=== PATIENT | female | born 1990 | race African-American/Black ===

== ENCOUNTER 2020-10-15 17:47 | Emergency (ER) | payer OTHER, SELFPAY ==
[2020-10-15 18:33] VITALS: BP 140/79; PULSE 94; RESP 16; TEMP 36.2; O2SAT 100
[2020-10-15 18:44] VITALS: BP 140/79; PULSE 94; RESP 17; TEMP 36.2; O2SAT 100; BMI 41.3
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
== END 2020-10-15 19:48 | disposition home or self-care (01) ==
PROVIDERS: Emergency Provider Internal Medicine
DX: S39.012A Strain of muscle, fascia and tendon of lower back, initial encounter (principal); M25.551 Pain in right hip; V43.02XA Car driver injured in collision with other type car in nontraffic accident, initial encounter; Y93.9 Activity, unspecified; Y92.410 Unspecified street and highway as the place of occurrence of the external cause; Y99.9 Unspecified external cause status; Z79.899 Other long term (current) drug therapy; Z87.891 Personal history of nicotine dependence
CPT/HCPCS: 99283; 99284

== ENCOUNTER 2021-07-18 20:40 | Emergency (ER) | payer OTHER, SELFPAY ==
--- NOTE | ~2021-07-18 | XR_ITS ---
EXAMINATION: XR HIP, RIGHT CLINICAL INFORMATION: Pain in right hip. COMPARISON: Right hip 01/11/2018. TECHNIQUE: Two views of the right hip. FINDINGS: Stable chronic changes of the right hip. There is a shallow acetabulum with superior subluxation of the femoral head. This suggests chronic hip dysplasia. Similar but not as severe change is evident in the left hip. There is chronic hypertrophic bony change seen at the anterior superior iliac crest extending along the right side of the iliac wing. No acute abnormality. No fracture or bone destruction. Sacroiliac joints and the symphysis pubis are normal. XR/XR hip RT w PEL1V IMPRESSION: Stable chronic changes of the right hip similar to prior exam of 01/11/2018. Shallow acetabulum with superiorly subluxed right femoral head. Probable chronic hip dysplasia. No acute abnormality.
[2021-07-18 20:49] VITALS: BP 145/97; PULSE 98; RESP 18; TEMP 36.7; O2SAT 98; BMI 37.3
--- NOTE | 2021-07-18 22:08 | ED_ITS ---
HPI - General Adult General Chief complaint: General Medical Stated complaint: right hip pain Time Seen by Provider: 07/18/21 21:45 Source: patient Mode of arrival: ambulatory Limitations: no limitations History of Present Illness HPI narrative: 30-year-old female here with complaints of acute on chronic right hip pain for the last 2 weeks. Patient tells me she has a history of hip dysplasia and has seen a specialist in [place] and it was recommended that she have the hip replaced. Patient tells me that this was 3 years ago and at that time she was and so she deferred any surgical intervention. She tells me that she has chronic pain since then but has had increasing pain over the last 2 weeks. No injury or trauma. No numbness, tingling, fevers, chills. patient taking Motrin at home with continued pain. Related Data Previous Rx's Medication Instructions Recorded cyclobenzaprine 10 mg tablet 10 mg PO TID PRN #10 tab 10/15/20 ibuprofen 600 mg tablet 600 mg PO Q8H PRN #20 tab 10/15/20 lidocaine 5 % topical patch 1 patch TOPICAL DAILY #15 ea 10/15/20 (Lidoderm) lidocaine 5 % topical patch 1 patch TOPICAL DAILY #15 ea 07/18/21 (Lidoderm) methocarbamol 750 mg tablet 750 mg PO Q6H PRN #15 tab 07/18/21 naproxen 500 mg tablet 500 mg PO BID PRN #30 tab 07/18/21 Allergies Allergy/AdvReac Type Severity Reaction Status Date / Time topiramate [From TOPAMAX] Allergy Unknown PSYCHOTIC Verified 07/18/21 20:49 BREAK Review of Systems Review of Systems: Yes all other systems are reviewed and are negative Constitutional: Constitutional: Reports no additional constitutional complaints, Denies body ache(s), Denies chills, Denies fever(s), Denies headache(s) and Denies weakness Eyes: Eyes: Reports no additional eye complaints and Denies change in vision ENT: Reports system reviewed and no additional complaints, except as documented, Denies dizziness, Denies headache(s), Denies nasal congestion, Denies nasal discharge and Denies neck pain Cardiovascular: Cardiovascular: Reports no additional cardiovascular complaints, Denies chest pain, Denies leg edema and Denies dyspnea Respiratory: Respiratory: Reports no additional respiratory complaints, Denies cough and Denies dyspnea Gastrointestinal: Gastrointestinal: Reports no additional gastrointestinal complaints, Denies abdominal pain, Denies diarrhea, Denies nausea and Denies vomiting Genitourinary: Genitourinary: Reports no additional female genitourinary complaints and Denies urinary incontinence Musculoskeletal: Musculoskeletal: Reports no additional musculoskeletal complaints, Denies back pain, Reports arthralgias, Denies joint swelling, Denies neck pain, Denies numbness and Denies tingling Integumentary/Breasts: Skin/Breast: Reports system reviewed and no additional complaints, except as docu and Denies rash Neurologic: Reports system reviewed and no additional complaints, except as documented, Denies Abnormal speech present, Denies dizziness, Denies headache(s), Denies numbness, Denies tingling and Denies weakness PMFSH Past Medical History Attestation statement: The following information was validated with the patient. Source: old records reviewed and nursing notes reviewed Medical History Anxiety Depression Hip dysplasia PTSD (post-traumatic stress disorder) Social History Social History Advance Directives: No Advance Directives Information Provided: Yes Physical Exam Vital Signs: Vital Signs: Last Vital Signs Temp 98.1 F 07/18/21 20:49 Pulse 98 07/18/21 20:49 Resp 18 07/18/21 20:49 BP 145/97 H 07/18/21 20:49 Pulse Ox 98 07/18/21 20:49 BMI result Body Mass Index 37.3 Const: General: cooperative, healthy appearing, comfortable and no acute distress Orientation/consciousness: patient oriented x3 Limitations: no limitations HENMT: Head: Yes normal to inspection Ears: hearing grossly normal bilaterally General nose exam: Normal external nose present Face and sinus: Yes normal facial exam Mouth: Normal oral and palatal mucosa present Throat: Yes posterior oropharynx normal Eyes: General: appearance normal, both eyes and all related structures Pupils: Equal, round and reactive pupils present Neck: Neck: Yes normal visual inspection Chest: Chest palpation & inspection: normal inspection of the chest Resp: Effort & Inspection: normal respiratory effort Auscultation: clear to auscultation bilaterally Cardio: Rate: regular rate Rhythm: regular rhythm Peripheral pulses: Peripheral pulses 2+ throughout GI: Inspection: Yes normal to inspection Palpation (GI): Soft to palpation and nontender Auscultation: normal bowel sounds Back/Spine/Pelvis: Thoracic/Lumbar Spine: thoracic and lumbar spine normal to inspection Skin: General skin exam: no rashes or lesions noted Neuro: General: patient oriented x3, no focal motor deficits and normal sensation to monofilament Cranial nerves: Yes Equal, round and reactive pupils present Cognition (Neuro): normal cognition Speech: No Abnormal speech present Gait exam (Neuro): Normal gait present Motor exam (neuro): 5/5 motor strength present throughout Extrem: Other: Tenderness over the right lateral hip with no deformity, shortening or rotation. Pain is worsened with abduction adduction of the right hip. General: Yes normal to inspection Course Course Course Narrative: Acute on chronic right hip pain will check x-rays. 2230- Stable chronic changes of the right hip similar to prior exam of 01/11/2018. Shallow acetabulum with superiorly subluxed right femoral head. Probable chronic hip dysplasia. No acute abnormality.' reviewed findings with patient. Recommend she follow up outpatient with Orthopedics. Will send her home with medications to help with pain in the meantime. Reviewed worrisome signs and symptoms of when to return to the emergency department. Comfortable discharge home. Medical Decision Making Medical Records Medical records reviewed: Yes I reviewed the patient's medical records. Lab Data Lab results reviewed: Yes I reviewed the patient's lab results. Imaging Data right hip x-ray: Attestation: I personally reviewed and interpreted this imaging study as follows: Radiologist's impression: FINDINGS: Stable chronic changes of the right hip. There is a shallow acetabulum with superior subluxation of the femoral head. This suggests chronic hip dysplasia. Similar but not as severe change is evident in the left hip. There is chronic hypertrophic bony change seen at the anterior superior iliac crest extending along the right side of the iliac wing. No acute abnormality. No fracture or bone destruction. Sacroiliac joints and the symphysis pubis are normal. XR/XR hip RT w PEL1V IMPRESSION: Stable chronic changes of the right hip similar to prior exam of 01/11/2018. Shallow acetabulum with superiorly subluxed right femoral head. Probable chronic hip dysplasia. No acute abnormality. ? Discharge Plan Discharge Clinical Impression: Dysplasia of hip Patient Disposition: Home, Self-Care Instructions: Developmental Dysplasia of the Hip in Children (ED), Hip Pain (ED) Additional Instructions: x-ray shows no fracture heat or ice to the area follow-up with orthopedics as discussed Prescriptions: New naproxen 500 mg tablet 500 mg PO BID PRN (Reason: pain) Qty: 30 RF: 0 methocarbamol 750 mg tablet 750 mg PO Q6H PRN (Reason: pain) Qty: 15 RF: 0 lidocaine [Lidoderm] 5 % adhesive patch,medicated 1 patch topical DAILY Qty: 15 RF: 0 No Action cyclobenzaprine 10 mg tablet 10 mg PO TID PRN (Reason: muscle spasm) Qty: 10 RF: 0 lidocaine [Lidoderm] 5 % adhesive patch,medicated 1 patch topical DAILY Qty: 15 RF: 0 ibuprofen 600 mg tablet 600 mg PO Q8H PRN (Reason: pain) Qty: 20 RF: 0 Referrals: Fernando Hearn MD [Physician] - 2 days Interventions: ED Discharge Assessment Last Done: 07/18/21 22:24 Discharge Date/Time: 07/18/21 22:28
== END 2021-07-18 22:28 | disposition home or self-care (01) ==
PROVIDERS: Emergency Provider Internal Medicine
DX: M25.551 Pain in right hip (principal); Q74.2 Other congenital malformations of lower limb(s), including pelvic girdle
CPT/HCPCS: 73502; 99283

== ENCOUNTER 2022-05-25 15:26 | Emergency (ER) | payer OTHER, SELFPAY ==
--- NOTE | ~2022-05-25 | XR_ITS ---
EXAMINATION: XR LEFT HAND AND WRIST CLINICAL INFORMATION: Pain and limited range of motion. COMPARISON: None. TECHNIQUE: Left hand/wrist 4 views. FINDINGS: There is no visible acute fracture, dislocation or subluxation. No bony erosive changes or loose bodies. The soft tissues are normal. There is a tiny fragment adjacent to ulnar styloid process likely old injury or fat necrosis. There is no scaphoid fracture. XR/XR hand wrist LT IMPRESSION: unremarkable left hand/wrist exam.
[2022-05-25 15:33] VITALS: BP 154/83; PULSE 94; RESP 18; TEMP 36.6; O2SAT 99; BMI 37.3
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
[2022-05-25] MEDS: Ketorolac Tromethamine 15 MG/ML VIAL 30 MG IM (17:38)
== END 2022-05-25 17:42 | disposition home or self-care (01) ==
PROVIDERS: Emergency Provider Emergency Medicine; PCP Internal Medicine
DX: S63.502A Unspecified sprain of left wrist, initial encounter (principal); S66.912A Strain of unspecified muscle, fascia and tendon at wrist and hand level, left hand, initial encounter; X50.1XXA Overexertion from prolonged static or awkward postures, initial encounter; Y93.89 Activity, other specified; Y92.810 Car as the place of occurrence of the external cause; Y99.8 Other external cause status
CPT/HCPCS: 73110; 73130; 96372; 99283; 99284; J1885

== ENCOUNTER 2023-03-03 20:02 | Emergency (ER) | payer OTHER, SELFPAY ==
--- NOTE | ~2023-03-03 | US_ITS ---
EXAMINATION: US PELVIS CLINICAL INFORMATION: Pain COMPARISON: None available. TECHNIQUE: Ultrasound of the pelvis is performed using both transabdominal and transvaginal transducers along with Doppler. Transvaginal imaging is performed due to inadequate visualization transabdominally. FINDINGS: Uterus: The uterus is anteverted and measures 9.1 x 4.0 x 4.2 cm. The double wall endometrial thickness is 0.3 mm. The uterus is smooth in contour and has normal myometrial echogenicity. No visible fibroid. Adnexa: Both ovaries are visualized. There is normal color flow to the adnexa. There is no ovarian torsion. There is no pelvic ascites or fluid collection. Right ovary measures 3.1 x 3.2 x 2.4 cm. 12 mL Left ovary measures 2.9 x 1.9 x 1.4 cm. 4 mL US/US pelvic and transvaginal IMPRESSION: Normal pelvic ultrasound.
[2023-03-03 20:50] VITALS: BP 149/95; PULSE 86; RESP 18; TEMP 36.5; O2SAT 97; BMI 36.7
--- NOTE | 2023-03-03 20:52 | ED_ITS ---
HPI - General Adult General Chief complaint: Vaginal Bleeding Stated complaint: vag bleeding 4 wks/ kidney area pain Time Seen by Provider: 03/04/23 03:21 Related Data Previous Rx's Medication Instructions Recorded cyclobenzaprine 10 mg tablet 10 mg PO TID PRN muscle spasm #10 10/15/20 tabs ibuprofen 600 mg tablet 600 mg PO Q8H PRN pain #20 tabs 10/15/20 lidocaine 5 % topical patch 1 patch topical DAILY #15 ea 10/15/20 (Lidoderm) lidocaine 5 % topical patch 1 patch topical DAILY #15 ea 07/18/21 (Lidoderm) methocarbamol 750 mg tablet 750 mg PO Q6H PRN pain #15 tabs 07/18/21 naproxen 500 mg tablet 500 mg PO BID PRN pain #30 tabs 07/18/21 acetaminophen 650 mg 650 mg PO Q8H PRN pain #30 tabs 03/04/23 tablet,extended release (Tylenol Arthritis Pain) cyclobenzaprine 10 mg tablet 10 mg PO Q8H #20 tabs 03/04/23 medroxyprogesterone 10 mg tablet 10 mg PO DAILY #7 tabs 03/04/23 (Provera) tramadol 50 mg tablet 50 mg PO Q6H PRN pain #20 tabs 03/04/23 Allergies Allergy/AdvReac Type Severity Reaction Status Date / Time topiramate [From TOPAMAX] Allergy Unknown PSYCHOTIC Verified 03/03/23 20:50 BREAK PMFSH Past Medical History Medical History Anxiety Depression Hip dysplasia PTSD (post-traumatic stress disorder) Social History Social History Alcohol intake: current Alcohol intake frequency: 0-2 drinks per day Alcohol type: wine Smoked in Last 30 Days: Yes Use of substances other than those prescribed or required for medical reasons: No Advance Directives: No Advance Directives Information Provided: Yes Physical Exam ED Vital Signs: BMI result Body Mass Index 36.7 Course Course Course Narrative: RME- 32 year old female presents for evaluation of lower abdominal pain radiating to her back. She reports that she has had vaginal bleeding for the last month which is unusual for her. Plan for labs, type and screen, UA, pelvic ultrasound. Medications Administered Discontinued Medications Generic Name Dose Route Start Last Admin Trade Name Brigid PRN Reason Stop Dose Admin Acetaminophen 650 mg 03/04/23 03:32 03/04/23 04:05 Acetaminophen 325 Mg Tablet PO 03/04/23 03:33 650 mg ONCE ONE Administration Medroxyprogesterone Acetate 10 mg 03/04/23 03:32 03/04/23 04:06 Medroxyprogesterone Acetate 5 Mg Tablet PO 03/04/23 03:33 Not Given ONCE ONE Medical Decision Making Lab Data 03/03/23 22:55 03/03/23 22:55 Labs: Lab Results 03/03/23 03/04/23 Range/Units 22:55 03:21 WBC 7.5 (4.8-10.8) X10*3/uL RBC 4.34 (4.20-5.50) X10*6/uL Hgb 12.3 (12.0-16.0) g/dl Hct 38.4 (37.0-47.0) % MCV 88.5 (80.0-98.0) fL MCH 28.3 (27.0-33.0) pg MCHC 32.0 (31.0-35.0) g/dl RDW 15.8 (11.0-16.0) % Plt Count 264 (160-400) X10*3/uL MPV 10.6 (9.4-12.3) fL Immature Gran % (Auto) 0.1 (0.0-0.4) % Neut % (Auto) 57.9 (45-73) % Lymph % (Auto) 31.5 (20-40) % Montague % (Auto) 9.4 (2-11) % Eos % (Auto) 0.8 (0-4) % Baso % (Auto) 0.3 (0-2) % Lymph # (Auto) 2.4 (1.2-4.9) X10*3/uL [place] # (Auto) 0.7 (0.1-1.2) X10*3/uL Eos # (Auto) 0.1 (0.0-0.4) X10*3/uL Baso # (Auto) 0.0 (0.0-0.2) X10*3/uL Abs Immat Gran (auto) 0.01 (0.00-0.03) X10*3/uL Absolute Neuts (auto) 4.3 (2.0-8.3) x10*3/uL Absolute Nucleated RBC 0.000 (0.0-0.012) X10*3/uL Nucleated RBC % (auto) 0.0 (0.0-0.2) /100WBC PT 13.1 (10.0-13.1) SEC INR 1.1 (0.9-1.1) APTT 32.2 (26.0-36.4) SEC Sodium 142 (135-145) mmol/L Potassium 3.1 L (3.3-5.1) mmol/L Chloride 109 H (96-108) mmol/L Carbon Dioxide 25 (22-29) mmol/L Anion Gap 11 L (12-20) BUN 8 L (9-16) mg/dL Creatinine 0.83 (0.5-1.4) mg/dL Estim Creat Clear Calc 134.4 Estimated GFR > 60 Random Glucose 129 H (60-115) mg/dL Calcium 9.4 (8.4-10.2) mg/dL Total Bilirubin 0.4 (0.0-1.0) mg/dL AST 15 (5-31) U/L ALT 18 (0-31) U/L Alkaline Phosphatase 76 (39-117) U/L Total Protein 7.2 (6.5-8.0) g/dL Albumin 4.2 (3.5-5.0) g/dL Lipase 15 (8-78) U/L Urine Color Dark Yellow Urine Appearance Clear Urine pH 6.0 (5.0-9.0) Ur Specific Eighty Eight >= 1.030 H (1.005-1.025) Urine Protein Trace (Neg-Trace) mg/dL Urine Glucose (UA) Negative (Negative) mg/dL Urine Ketones Trace (Negative) mg/dL Urine Blood Large (3+) H (Negative) Urine Nitrite Negative (Negative) Ur Leukocyte Esterase Negative (Negative) Urine RBC 3-5 H (0-2) /HPF Urine WBC 0-5 (0-5) /HPF Ur Squamous Epith Cells 0-2 (0-2) /HPF Urine Bacteria None Seen (None Seen) Hyaline Casts 0-2 (0-2) /LPF Urine Test NEGATIVE (NEGATIVE) Discharge Plan Discharge Clinical Impression: Dysfunctional uterine bleeding Patient Disposition: Home, Self-Care Instructions: Dysfunctional Uterine Bleeding (ED) Additional Instructions: Take medication as prescribed and 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 Prescriptions: New medroxyprogesterone [Provera] 10 mg tablet 10 mg PO DAILY Qty: 7 0RF acetaminophen [Tylenol Arthritis Pain] 650 mg tablet extended release 650 mg PO Q8H PRN (Reason: pain) Qty: 30 0RF cyclobenzaprine 10 mg tablet 10 mg PO Q8H Qty: 20 0RF tramadol 50 mg tablet 50 mg PO Q6H PRN (Reason: pain) Qty: 20 0RF No Action cyclobenzaprine 10 mg tablet 10 mg PO TID PRN (Reason: muscle spasm) Qty: 10 0RF lidocaine [Lidoderm] 5 % adhesive patch,medicated 1 patch topical DAILY Qty: 15 0RF Rx Instructions: leave on most painful area for up to 12 hrs ibuprofen 600 mg tablet 600 mg PO Q8H PRN (Reason: pain) Qty: 20 0RF naproxen 500 mg tablet 500 mg PO BID PRN (Reason: pain) Qty: 30 0RF methocarbamol 750 mg tablet 750 mg PO Q6H PRN (Reason: pain) Qty: 15 0RF lidocaine [Lidoderm] 5 % adhesive patch,medicated 1 patch topical DAILY Qty: 15 0RF Rx Instructions: leave on most painful area for up to 12 hrs Referrals: Sergio Bennett MD [Physician] - 5 days Stand Alone Forms: Work/School Release Interventions: ED Discharge Assessment Last Done: 03/04/23 04:09 Discharge Date/Time: 03/04/23 04:10
[2023-03-03 23:05] LABS: MANUAL DIFF FLAG NO
[2023-03-03 23:07] LABS: Basophils Percent Auto 0.3 % (0-2); Eosinophils Absolute Auto 0.1 X10*3/uL (0.0-0.4); Eosinophils Percent Auto 0.8 % (0-4); Hematocrit 38.4 % (37.0-47.0); Hemoglobin 12.3 g/dl (12.0-16.0); Imm Gran Abs Auto 0.01 X10*3/uL (0.00-0.03); Imm Gran Pct Auto 0.1 % (0.0-0.4); Lymphocytes Absolute Auto 2.4 X10*3/uL (1.2-4.9); Lymphocytes Percent Auto 31.5 % (20-40); Mean Corpuscular Hemoglobin 28.3 pg (27.0-33.0); Mean Corpuscular Volume 88.5 fL (80.0-98.0); Mean Platelet Volume 10.6 fL (9.4-12.3); Monocytes Absolute Auto 0.7 X10*3/uL (0.1-1.2); Monocytes Percent Auto 9.4 % (2-11); Neutrophils Absolute Auto 4.3 x10*3/uL (2.0-8.3); Neutrophils Percent Auto 57.9 % (45-73); Platelet Count 264 X10*3/uL (160-400); Red Blood Count 4.34 X10*6/uL (4.20-5.50); Red Cell Distribution Width 15.8 % (11.0-16.0); White Blood Count 7.5 X10*3/uL (4.8-10.8)
[2023-03-03 23:17] LABS: INTERNATIONAL NORM RATIO 1.1 (0.9-1.1); Prothrombin Time 13.1 SEC (10.0-13.1)
[2023-03-03 23:20] LABS: Partial Thromboplastin Time 32.2 SEC (26.0-36.4)
[2023-03-03 23:25] LABS: Alanine Aminotransferase 18 U/L (0-31); Albumin Level 4.2 g/dL (3.5-5.0); Alkaline Phosphatase 76 U/L (39-117); Anion Gap 11 (12-20); Aspartate Amino Transferase 15 U/L (5-31); Bilirubin Total 0.4 mg/dL (0.0-1.0); Blood Urea Nitrogen 8 mg/dL (9-16); Calcium 9.4 mg/dL (8.4-10.2); Carbon Dioxide 25 mmol/L (22-29); Chloride 109 mmol/L (96-108); Creatinine Clr Calc Pharmacy 134.4; Estimated Glomerular Filt Rate > 60; Glucose Random 129 mg/dL (60-115); Lipase 15 U/L (8-78); Potassium 3.1 mmol/L (3.3-5.1); Sodium 142 mmol/L (135-145); Total Protein 7.2 g/dL (6.5-8.0)
--- OUTSIDE RECORDS SUMMARY | 2023-03-04 01:06 | XMS_ITS | Summary of Care ---
Author Name Unknown Organization [facility] Address [address] [place], [place] [id number]- Care Team Providers Care Dispatcher Service Chief Name Role Phone KYLEIGH TREVINO, ANJUM Lara Primary Care Physi beth Encounter [facility] [id number] Date(s): 01/04/22 - 01/04/[address] [address]- Encounter Diagnosis Other specified congenital deformities of hip(Final) - Discharge Disposition: Discharge Attending Physician: SRI SPICER MD Referring Physician: [facility] Allergies, Adverse Reactions, Alerts Substance Reaction Severity Status Topamax Psychiatric sign Active
--- OUTSIDE RECORDS SUMMARY | 2023-03-04 01:06 | XMS_ITS | Summary of Care ---
Author Name Unknown Organization [facility] Address [address] [place], [place] [id number]- Care Team Providers Care Sticker Operator Name Role Phone KYLEIGH TREVINO, ANJUM Lara Primary Care Physi beth Encounter [facility] [id number] Date(s): 01/08/22 - 01/08/[address] [address]- Attending Physician: SRI SPICER MD Admitting Physician: SRI SPICER MD Referring Physician: [facility] Allergies, Adverse Reactions, Alerts Substance Reaction Severity Status Topamax Psychiatric sign Active Medications No Known Medications
--- OUTSIDE RECORDS SUMMARY | 2023-03-04 01:06 | XMS_ITS | Summary of Care ---
Author Name Unknown Organization [facility] Address [address] [place] [address]- Care Team Providers Care Director Of Analytical Development Name Role Phone KYLEIGH TREVINO, ANJUM Lara Primary Care Physi beth Encounter [facility] [id number] Date(s): 10/19/21 - 10/19/[address] [address]- Discharge Disposition: Discharge Attending Physician: TUCKER MCNAIR MD Referring Physician: ELADIA PEPPER, SHARON Kim Allergies, Adverse Reactions, Alerts Substance Reaction Severity Status Topamax Psychiatric sign Active
--- OUTSIDE RECORDS SUMMARY | 2023-03-04 01:06 | XMS_ITS | Summary of Care ---
Author Name Unknown Organization [facility] Address [address] [place], [place] [address]- Care Team Providers Care Sustain Engineer Name Role Phone KYLEIGH TREVINO, ANJUM Lara Primary Care Physi beth Encounter [facility] [id number] Date(s): 01/07/22 - 01/07/[address] [address]- Discharge Disposition: Discharge Attending Physician: SRI SPICER MD Referring Physician: SRI SPICER MD Allergies, Adverse Reactions, Alerts Substance Reaction Severity Status Topamax Psychiatric sign Active
--- OUTSIDE RECORDS SUMMARY | 2023-03-04 01:06 | XMS_ITS | Summary of Care ---
Author Name Unknown Organization [facility] Address [address] [place] [address]. [place] [address]- Care Team Providers Care Phlebotomy Services Representative Name Role Phone KYLEIGH TREVINO, ANJUM Lara Primary Care Physi beth Encounter [facility] [id number] Date(s): 12/13/21 - 12/13/21 [facility] [address] [place] [id number]- Discharge Disposition: Discharge Attending Physician: TUCKER MCNAIR MD Referring Physician: [facility] Allergies, Adverse Reactions, Alerts Substance Reaction Severity Status Topamax Psychiatric sign Active
--- OUTSIDE RECORDS SUMMARY | 2023-03-04 01:06 | XMS_ITS | Summary of Care ---
Author Name Unknown Organization [facility] Address [address] [place] [address]- Care Team Providers Care Outreach Analyst Name Role Phone KYLEIGH TREVINO, ANJUM Lara Primary Care Physi beth Encounter [facility] [id number] Date(s): 10/19/21 - 10/19/[address] [address]- Discharge Disposition: Discharge Attending Physician: TUCKER MCNAIR MD Referring Physician: TUCKER MCNAIR MD Allergies, Adverse Reactions, Alerts Substance Reaction Severity Status Topamax Psychiatric sign Active
--- OUTSIDE RECORDS SUMMARY | 2023-03-04 01:06 | XMS_ITS | Summary of Care ---
Author Name Unknown Organization [facility] Address [address] [place], [place] [address]- Care Team Providers Care Thread Machine Operator Name Role Phone KYLEIGH TREVINO, ANJUM Lara Primary Care Physi beth Encounter [facility] [id number] Date(s): 01/04/22 - 01/04/[address] [address]- Encounter Diagnosis Other specified congenital deformities of hip(Final) - Discharge Disposition: Discharge Attending Physician: SRI SPICER MD Referring Physician: [facility] Allergies, Adverse Reactions, Alerts Substance Reaction Severity Status Topamax Psychiatric sign Active
--- OUTSIDE RECORDS SUMMARY | 2023-03-04 01:06 | XMS_ITS | Summary of Care ---
Author Name Unknown Organization [facility] Address [address] [place] [address]. [place] [id number]- Care Team Providers Care Staff Rn Name Role Phone KYLEIGH TREVINO, ANJUM Lara Primary Care Physi beth Encounter [facility] [id number] Date(s): 08/30/21 - 08/30/21 [facility] [address] [place] [address]- Attending Physician: TUCKER MCNAIR MD Referring Physician: [facility] Allergies, Adverse Reactions, Alerts Substance Reaction Severity Status Topamax Psychiatric sign Active
--- OUTSIDE RECORDS SUMMARY | 2023-03-04 01:07 | XMS_ITS | Continuity of Care Document ---
Author Name Unknown Organization [facility] Address [address] [place] [address]- Care Team Providers Care Devulcanizer Tender Name Role Phone Don Samson MD Primary Care Physician Encounter [facility] Date(s): 11/12/19 - 01/09/[address] [address]- [facility] Attending Physician: Not on Staff, Attending MD Referring Physician: Don Samson MD Allergies, Adverse Reactions, Alerts Substance Reaction Severity Status Topamax Active Immunizations Given and Recorded Vaccine Date Status Refusal Reason pneumococcal 23-valent vaccine 01/01/20 Given Influenza Virus Vaccine (oldterm) 08/11/18 Recorde d Boostrix (Tdap) (oldterm) 01/01/11 Given influenza virus vaccine, inactivated 1 07/25/10 Gi humberto 1Admin Note: VIS given Medications Keflex monohydrate 500 mg oral capsule 1 capsule = 500 mg, By Mouth, Every 8 hours, for 11 days, # 33 capsule, 0 Refills, Acute 01/14/20 15:08:00 EDT, 01/03/20 15:08:00 EDT, Capsule, [facility], 155.4, cm, 01/03/20 7:57:00 EDT, Height, 75.4, kg, 12/31/19 10:01:00 EDT, Dry Weight Start Date: 01/03/20 Stop Date: 01/14/20 Status: Ordered Multivitamins with Folic Acid 1 mg oral tablet 1 tablet, By Mouth, Daily, # 90 tablet, 3 Refills, Maintenance, 09/27/19 10:06:00 EST, Tablet, [facility], 1 tablet By Mouth Daily, 179, cm, 09/27/19 9:37:00 EST, Height, 122.9, kg, 09/18/19 22:24:00 EST, Dry Weight Start Date: 09/27/19 Status: Ordered Tylenol 325 mg oral capsule 2 capsule = 650 mg, By Mouth, Every 4 hours, PRN as needed for pain, not to exceed 4000 mg/day, # 90 capsule, 0 Refills, Maintenance, 10/17/19 21:15:00 EDT, Capsule, [facility], 179, cm, 09/18/19 22:25:00 EST, Height, 122.9, kg, 09/18/19... Start Date: 10/17/19 Status: Ordered Problem List Condition Effective Dates Status Health Status Inform ant Anxiety(Confirmed) 1 Active Constipation(Confirmed) Active Depression(Confirmed) 2 Active Hip dysplasia(Confirmed) 3 Active (Confirmed) Active 1Sees therapist at [facility], not currently on medications 2Sees therapist at [facility], not currently on medications 3bilateral hip dysplasia, surgery deferred due to . Followed initially by BRIANA then referred to [place] Social History Social History Type Response Smoking Status Never (less than 100 in lifetime) entered on: 09/27/19 Sex
--- OUTSIDE RECORDS SUMMARY | 2023-03-04 01:07 | XMS_ITS | Continuity of Care Document ---
Author Name Unknown Organization [facility] Address [address] [place] [address] Care Team Providers Care Pocket And Pulley Machine Operator Name Role Phone Don Samson MD Primary Care Physician Encounter [facility] Date(s): 11/12/19 - 11/19/[address] [address]- [facility] Attending Physician: Tata Aguirre DO Allergies, Adverse Reactions, Alerts Substance Reaction Severity Status Topamax Active Immunizations Given and Recorded Vaccine Date Status Refusal Reason Influenza Virus Vaccine (oldterm) 08/11/18 Recorde d Boostrix (Tdap) (oldterm) 01/01/11 Given influenza virus vaccine, inactivated 1 07/25/10 Gi humberto 1Admin Note: VIS given Medications Multivitamins with Folic Acid 1 mg oral tablet 1 tablet, By Mouth, Daily, # 90 tablet, 3 Refills, Maintenance, 09/27/19 10:06:00 EST, Tablet, [facility], 1 tablet By Mouth Daily, 179, cm, 09/27/19 9:37:00 EST, Height, 122.9, kg, 09/18/19 22:24:00 EST, Dry Weight Start Date: 09/27/19 Status: Ordered Tylenol 325 mg oral capsule 2 capsule = 650 mg, By Mouth, Every 4 hours, PRN as needed for pain, not to exceed 4000 mg/day, # 90 capsule, 0 Refills, Maintenance, 10/17/19 21:15:00 EDT, Capsule, [facility], 179, cm, 09/18/19 22:25:00 EST, Height, 122.9, kg, 09/18/19... Start Date: 10/17/19 Status: Ordered Problem List Condition Effective Dates Status Health Status Inform ant Anxiety(Confirmed) 1 Active Constipation(Confirmed) Active Depression(Confirmed) 2 Active Hip dysplasia(Confirmed) 3 Active (Confirmed) Active 1Sees therapist at [facility], not currently on medications 2Sees therapist at [facility], not currently on medications 3bilateral hip dysplasia, surgery deferred due to . Followed initially by BRIANA then referred to [place] Social History Social History Type Response Smoking Status Never (less than 100 in lifetime) entered on: 09/27/19 Sex
--- OUTSIDE RECORDS SUMMARY | 2023-03-04 01:07 | XMS_ITS | Continuity of Care Document ---
Author Name Unknown Organization [facility] Address [address] [place] [address] Care Team Providers Care Club Concierge Name Role Phone Don Samson MD Primary Care Physician Encounter [facility] Date(s): 01/05/20 - 02/10/20 [facility] [address] [address]- [facility] Attending Physician: Tata Aguirre DO Admitting Physician: Tata Aguirre DO Referring Physician: Lulu Nieves DO Allergies, Adverse Reactions, Alerts Substance Reaction Severity Status Topamax Active Immunizations Given and Recorded Vaccine Date Status Refusal Reason pneumococcal 23-valent vaccine 01/01/20 Given Influenza Virus Vaccine (oldterm) 08/11/18 Recorde d Boostrix (Tdap) (oldterm) 01/01/11 Given influenza virus vaccine, inactivated 1 07/25/10 Gi humberto 1Admin Note: VIS given Medications Macrobid macrocrystals-monohydrate 100 mg oral capsule 1 capsule = 100 mg, By Mouth, Daily, for 30 days, # 30 capsule, 7 Refills, Acute 09/13/20 10:25:00 EST, 01/17/20 10:25:00 EDT, [id number], suppression daily for hx pyelo in , 155.4, cm, 01/17/20 10:06:00 EDT, Height, 75.4, kg, ... Start Date: 01/17/20 Stop Date: 09/13/20 Status: Ordered Multivitamins with Folic Acid 1 mg oral tablet 1 tablet, By Mouth, Daily, # 90 tablet, 3 Refills, Maintenance, 09/27/19 10:06:00 EST, Tablet, [facility], 1 tablet By Mouth Daily, 179, cm, 09/27/19 9:37:00 EST, Height, 122.9, kg, 09/18/19 22:24:00 EST, Dry Weight Start Date: 09/27/19 Status: Ordered Tylenol 325 mg oral capsule 2 capsule = 650 mg, By Mouth, Every 4 hours, PRN as needed for pain, not to exceed 4000 mg/day, # 90 capsule, 0 Refills, Maintenance, 10/17/19 21:15:00 EDT, Capsule, [facility], 179, cm, 09/18/19 22:25:00 EST, Height, 122.9, kg, 09/18/19... 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 Followed initially by BRIANA then referred to [place] Social History Social History Type Response Smoking Status Never (less than 100 in lifetime) entered on: 09/27/19 Sex
--- OUTSIDE RECORDS SUMMARY | 2023-03-04 01:07 | XMS_ITS | Continuity of Care Document ---
Author Name Unknown Organization [facility] Address [address] [place] [address] Care Team Providers Care Vp Sales Name Role Phone Don Samson MD Primary Care Physician ( [phone] Encounter [facility] Date(s): 04/13/20 - 05/19/[address] [address]- [facility] Attending Physician: Courtney Hyatt MD Admitting Physician: Courtney Hyatt MD Referring Physician: Talisha Steward NP Allergies, Adverse Reactions, Alerts Substance Reaction Severity Status Topamax Active Immunizations Given and Recorded Vaccine Date Status Refusal Reason influenza virus vaccine, inactivated 05/09/20 Give n influenza virus vaccine, inactivated 1 07/25/10 Gi humberto tetanus/diphtheria/pertussis, acel(Tdap) 02/14/20 Given pneumococcal 23-valent vaccine 01/01/20 Given Influenza Virus Vaccine (oldterm) 08/11/18 Recorde d Boostrix (Tdap) (oldterm) 01/01/11 Given 1Admin Note: VIS given Medications Colace sodium 100 mg oral capsule See Instructions, 1 capsule By Mouth 1 to 2 times a day as needed for constipation, # 60 capsule, Refills 1, Tot. Refills 1, Maintenance, 05/11/20 6:54:00 EDT, Instructions Replace Required Details, Route to Pharmacy Electronically, [facility]/pharmacy #[id number]... Start Date: 05/11/20 Status: Ordered ibuprofen 800 mg oral tablet 800 mg, 1, tablet, By Mouth, Every 8 hours, PRN, (4-6), may give 400mg per patient preference and re-dose with 400mg within 8 hours if needed. Patient should only receive a total of 800mg of Ibuprofen every 8 hours., # 60 tablet, Refills 0, Tot. Ref... Start Date: 05/11/20 Status: Ordered Macrobid macrocrystals-monohydrate 100 mg oral capsule 1 capsule = 100 mg, By Mouth, Daily, for 30 days, # 30 capsule, 7 Refills, Acute 09/13/20 10:25:00 EST, 01/17/20 10:25:00 EDT, [facility]/pharmacy #[id number], suppression daily for hx pyelo in , 155.4, cm, 01/17/20 10:06:00 EDT, Height, 75.4, kg, ... Start Date: 01/17/20 Stop Date: 09/13/20 Status: Ordered Multivitamins with Folic Acid 1 mg oral tablet 1 tablet, By Mouth, Daily, # 90 tablet, 3 Refills, Maintenance, 09/27/19 10:06:00 EST, Tablet, [facility], 1 tablet By Mouth Daily, 179, cm, 09/27/19 9:37:00 EST, Height, 122.9, kg, 09/18/19 22:24:00 EST, Dry Weight Start Date: 09/27/19 Status: Ordered Tylenol 325 mg oral capsule 2 capsule = 650 mg, By Mouth, Every 4 hours, PRN as needed for pain, not to exceed 4000 mg/day, # 90 capsule, 0 Refills, Maintenance, 05/11/20 6:54:00 EDT, Capsule, [id number], 155, cm, 05/11/20 1:07:00 EDT, Height, 130, kg, 05/09/20 3:56:00 E... 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 Followed initially by BRIANA then referred to [place] 4Aenrike in her past making pelvic exams traumatic Social History Social History Type Response Smoking Status Never (less than 100 in lifetime) entered on: 09/27/19 Sex
--- OUTSIDE RECORDS SUMMARY | 2023-03-04 01:07 | XMS_ITS | Continuity of Care Document ---
Author Name Unknown Organization [facility] Address [address] [place] [id number]- Care Team Providers Care Parker Name Role Phone Don Samson MD Primary Care Physician ( [phone] Encounter [facility] Date(s): 05/08/20 - 06/07/[address] [address]- [facility] Allergies, Adverse Reactions, Alerts Substance Reaction Severity Status Topamax Active Immunizations Given and Recorded Vaccine Date Status Refusal Reason influenza virus vaccine, inactivated 05/09/20 Give n influenza virus vaccine, inactivated 1 07/25/10 Gi humberto tetanus/diphtheria/pertussis, acel(Tdap) 02/14/20 Given pneumococcal 23-valent vaccine 01/01/20 Given Influenza Virus Vaccine (oldterm) 08/11/18 Recorde d Boostrix (Tdap) (oldterm) 01/01/11 Given 1Admin Note: VIS given Medications Tri 0.35 mg oral tablet 1 tablet = 0.35 mg, By Mouth, Daily, # 28 tablet, 12 Refills, Maintenance, 06/07/20 17:33:00 EDT, Tablet, [facility]/pharmacy #[id number], 155, cm, 06/07/20 17:28:00 EDT, Height, 130, kg, 05/09/20 3:56:00 EDT, Dry Weight Start Date: 06/07/20 Status: Ordered Colace sodium 100 mg oral capsule See Instructions, 1 capsule By Mouth 1 to 2 times a day as needed for constipation, # 60 capsule, Refills 1, Tot. Refills 1, Maintenance, 05/11/20 6:54:00 EDT, Instructions Replace Required Details, Route to [facility]acy [facility]ically, [id number]... Start Date: 05/11/20 Status: Ordered ibuprofen 800 [...] 09/13/20 10:25:00 EST, 01/17/20 10:25:00 EDT, [id number], suppression daily for hx pyelo in , 155.4, cm, 01/17/20 10:06:00 EDT, Height, 75.4, kg, ... Start Date: 01/17/20 Stop Date: 09/13/20 Status: Ordered Multivitamins with Folic Acid 1 mg oral tablet 1 tablet, By Mouth, Daily, # 90 tablet, 3 Refills, Maintenance, 09/27/19 10:06:00 EST, Tablet, [facility], 1 tablet By Mouth Daily, 179, cm, 09/27/19 9:37:00 EST, Height, 122.9, kg, 09/18/19 22:24:00 EST, Dry Weight Start Date: 09/27/19 Status: Ordered Tylenol 325 mg oral capsule 2 capsule = 650 mg, By Mouth, Every 4 hours, PRN as needed for pain, not to exceed 4000 mg/day, # 90 capsule, 0 Refills, Maintenance, 05/11/20 6:54:00 EDT, Capsule, [id number], 155, cm, 05/11/20 1:07:00 EDT, Height, 130, [...] 4 Active (Confirmed) Active 1Sees therapist at [facility], not currently on medications 2Sees therapist at [facility], not currently on medications 3bilateral hip dysplasia, surgery deferred due to . Followed initially by BRIANA then referred to [place] in her past making pelvic exams traumatic Social History Social History Type Response Smoking Status Never (less than 100 in lifetime) entered on: 09/27/19 Sex Female
--- OUTSIDE RECORDS SUMMARY | 2023-03-04 01:07 | XMS_ITS | Continuity of Care Document ---
Author Name Unknown Organization [facility] Address [address] [place] [address]- Care Team Providers Care Neonatal Specialist Name Role Phone Don Samson MD Primary Care Physician Encounter [facility] [place] Date(s): 04/05/20 - 05/19/[address] [address]- [facility] Attending Physician: Not on Staff, Attending MD Allergies, Adverse Reactions, Alerts Substance Reaction [...] Replace Required Details, Route to Pharmacy Electronically, [facility]/pharmacy #[id number]... Start Date: 05/11/20 Status: Ordered ibuprofen 800 [...] 3 Refills, Maintenance, 09/27/19 10:06:00 EST, Tablet, [facility], 1 tablet By Mouth [...] 4 Active (Confirmed) Active 1Sees therapist at [facility], not currently on medications 2Sees therapist at [facility], not currently on medications 3bilateral hip dysplasia, surgery deferred due to . [facility]ed [facility] [address] [facility] [address] [place] her past making pelvic exams traumatic Social History Social History Type Response Smoking Status Never (less than 100 in lifetime) entered on: 09/27/19 Sex
--- OUTSIDE RECORDS SUMMARY | 2023-03-04 01:07 | XMS_ITS | Continuity of Care Document ---
Author Name Unknown Organization [facility] ter Address [address] [place] [address]- Care Team Providers Care Concrete Analyst Name Role Phone Don Samson MD Primary Care Physician Encounter [facility] Date(s): 05/08/20 - 05/08/[address] [address]- [facility] Discharge Disposition: A-D/C Home Attending Physician: Romero Brenner MD Admitting Physician: Romero Brenner MD Referring Physician: Romero Brenner MD Allergies, Adverse Reactions, Alerts Substance Reaction Severity Status Topamax Active Immunizations Given and Recorded Vaccine Date Status Refusal Reason tetanus/diphtheria/pertussis, acel(Tdap) 02/14/20 Given pneumococcal 23-valent vaccine 01/01/20 Given Influenza Virus Vaccine (oldterm) 08/11/18 Recorde d Boostrix (Tdap) (oldterm) 01/01/11 Given influenza virus vaccine, inactivated 1 07/25/10 Gi humberto 1Admin Note: VIS given Medications Colace sodium 100 mg oral capsule See Instructions, 1 capsule By Mouth 1 to 2 times a day as needed for constipation, # 60 capsule, Refills 1, Tot. Refills 1, Maintenance, 05/03/20 11:23:00 EDT, Instructions Replace Required Details,Route to [facility], [id number]... Start Date: 05/03/20 Status: Ordered Macrobid macrocrystals-monohydrate 100 mg oral [...] 3 Refills, Maintenance, 09/27/19 10:06:00 EST, Tablet, [facility], 1 tablet By Mouth Daily, 179, cm, 09/27/19 9:37:00 EST, Height, 122.9, kg, 09/18/19 22:24:00 EST, Dry Weight Start Date: 09/27/19 Status: Ordered Tylenol 325 mg oral capsule 2 capsule = 650 mg, By Mouth, Every 4 hours, PRN as needed for pain, not to exceed 4000 mg/day, # 90 capsule, 0 Refills, Maintenance, 10/17/19 21:15:00 EDT, Capsule, [facility], 179, cm, 09/18/19 22:25:00 [...] 4 Active (Confirmed) Active 1Sees therapist at [facility], not currently on medications 2Sees therapist at [facility], not currently on medications 3bilateral hip dysplasia, surgery deferred due to . Followed initially by BRIANA then referred to [place] [facility] in her past making pelvic exams traumatic Vital Signs Most recent to oldest [Reference Range]: 1 Weight 129.2 kg (05/08/20 8:05 PM) Oxygen Saturation [94-100 %] 98 % (05/08/20 7:37 PM) Pulse Rate [55-90 bpm] 88 bpm (05/08/20 7:37 PM) Blood Pressure [90-138/55-84 mm Hg] 131/ 82mm Hg (05/08/20 7:37 PM) Respiratory Rate [16-30 br/min] 18 br/mi n (05/08/20 7:37 PM) Temperature [96.8-100.4 DegF] 98.1 DegF (05/08/20 7:37 PM) Mode of Delivery (Oxygen) Room air (05/08/20 7:37 PM) Blood pressure sites Arm, right (05/08/20 7:37 PM) Temperature Route Oral (05/08/20 7:37 PM) Dry Weight 129.2 kg (05/08/20 8:05 PM) Weight Obtained Via Standing scale (05/08/20 8:05 PM) Social History Social History Type Response Smoking Status Never (less than 100 in lifetime) entered on: 09/27/19 Sex
--- OUTSIDE RECORDS SUMMARY | 2023-03-04 01:07 | XMS_ITS | Continuity of Care Document ---
Author Name Unknown Organization [facility] Address [address] [place] [phone]- Care Team Providers Care Damage Prevention Coordinator Name Role Phone Don Samson MD Primary Care Physician Encounter [facility] Date(s): 05/03/20 - 06/09/[address] [address]- [facility] Attending Physician: Purvi Reyes CNM Admitting Physician: Purvi Reyes CNM Allergies, Adverse Reactions, Alerts Substance Reaction Severity [...] 12 Refills, Maintenance, 06/07/20 17:33:00 EDT, [facility]t, [id number], 155, cm, 06/07/20 17:28:00 EDT, Height, 130, kg, 05/09/20 3:56:00 EDT, Dry Weight Start Date: 06/07/20 Status: Ordered Colace sodium 100 mg oral capsule See Instructions, 1 capsule By Mouth 1 to 2 times a day as needed for constipation, # 60 capsule, Refills 1, Tot. Refills 1, Maintenance, 05/11/20 6:54:00 EDT, Instructions Replace Required Details, Route to Pharmacy Electronically, [facility]/pharmacy #[id number]... Start Date: 05/11/20 Status: Ordered ibuprofen 800 [...] Acute 09/13/20 10:25:00 EST, 01/17/20 10:25:00 EDT, [facility]/pharmacy #[id number], suppression daily for hx pyelo in , 155.4, cm, 01/17/20 10:06:00 EDT, Height, 75.4, kg, ... Start Date: 01/17/20 Stop Date: 09/13/20 Status: Ordered Multivitamins with Folic Acid 1 mg oral tablet 1 tablet, By Mouth, Daily, # 90 tablet, 3 Refills, Maintenance, 09/27/19 10:06:00 EST, Tablet, [facility] 3, 1 tablet By Mouth Daily, 179, cm, 09/27/19 9:37:00 EST, Height, 122.9, kg, 09/18/19 22:24:00 EST, Dry Weight Start Date: 09/27/19 Status: Ordered Tylenol 325 mg oral capsule 2 capsule = 650 mg, By Mouth, Every 4 hours, PRN as needed for pain, not to exceed 4000 mg/day, # 90 capsule, 0 Refills, Maintenance, 05/11/20 6:54:00 EDT, Capsule, [facility]/pharmacy #[id number], 155, cm, 05/11/20 1:07:00 EDT, Height, [...] Active (Confirmed) Active 1Sees therapist at [facility], not currently on medications 2Sees therapist at [facility], not currently on medications 3bilateral hip dysplasia, surgery deferred due to . Followed initially by BRIANA then referred to [place] [facility] in her past making pelvic exams traumatic Social History Social History Type Response Smoking Status Never (less than 100 in lifetime) entered on: 09/27/19 Sex Female
--- OUTSIDE RECORDS SUMMARY | 2023-03-04 01:07 | XMS_ITS | Continuity of Care Document ---
Author Name Unknown Organization [facility] Address [address] [place] [phone]- Care Team Providers Care Gasateria Attendant Name Role Phone Don Samson MD Primary Care Physician Encounter [facility] Date(s): 02/28/20 - 03/29/[address] [address]- [facility] Allergies, Adverse Reactions, Alerts Substance Reaction Severity [...] 09/13/20 10:25:00 EST, 01/17/20 10:25:00 EDT, [id number], suppression daily for hx pyelo in , 155.4, cm, 01/17/20 10:06:00 EDT, Height, 75.4, kg, ... Start Date: 01/17/20 Stop Date: 09/13/20 Status: Ordered Multivitamins with Folic Acid 1 mg oral tablet 1 tablet, By Mouth, Daily, # 90 tablet, 3 Refills, Maintenance, 09/27/19 10:06:00 EST, Tablet, [facility], 1 tablet By Mouth Daily, 179, cm, 09/27/19 9:37:00 EST, Height, 122.9, kg, 09/18/19 22:24:00 EST, Dry Weight Start Date: 09/27/19 Status: Ordered Tylenol 325 mg oral capsule 2 capsule = 650 mg, By Mouth, Every 4 hours, PRN as needed for pain, not to exceed 4000 mg/day, # 90 capsule, 0 Refills, Maintenance, 10/17/19 21:15:00 EDT, Capsule, [facility], 179, cm, 09/18/19 22:25:00 EST, Height, 122.9, kg, 09/18/19... 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 Followed initially by BRIANA then referred to [place] in her past making pelvic exams traumatic Social History Social History Type Response Smoking Status Never (less than 100 in lifetime) entered on: 09/27/19 Sex
--- OUTSIDE RECORDS SUMMARY | 2023-03-04 01:07 | XMS_ITS | Continuity of Care Document ---
Author Name Unknown Organization [facility] Address [address] [place] [address]- Care Team Providers Care Dye Reel Operator Name Role Phone Don Samson MD Primary Care Physician Encounter [facility] [place] Date(s): 08/22/20 - 09/21/[address] [address]- Attending Physician: Antonio Thomason Admitting Physician: AdmAntonio sarah Referring Physician: AdmtrAntonio Allergies, Adverse Reactions, Alerts Substance Reaction Severity [...] Replace Required Details, Route to Pharmacy Electronically, [facility]/pharmacy #[id number]... Start Date: 05/11/20 Status: Ordered ibuprofen 800 mg oral tablet 800 mg, 1, tablet, By Mouth, Every 8 hours, PRN, (4-6), may give 400mg per patient preference and re-dose with 400mg within 8 hours if needed. Patient should only receive a total of 800mg of Ibuprofen every 8 hours., # 60 tablet, Refills 0, Tot. Ref... Start Date: 05/11/20 Status: Ordered Multivitamins with Folic Acid 1 mg oral tablet 1 tablet, By Mouth, Daily, # 90 tablet, 3 Refills, Maintenance, 09/27/19 10:06:00 EST, Tablet, [facility], 1 tablet By Mouth Daily, 179, cm, 09/27/19 9:37:00 EST, Height, 122.9, kg, 09/18/19 22:24:00 EST, Dry Weight Start Date: 09/27/19 Status: Ordered Tylenol 325 mg oral capsule 2 capsule = 650 mg, By Mouth, Every 4 hours, PRN as needed for pain, not to exceed 4000 mg/day, # 90 capsule, 0 Refills, Maintenance, 05/11/20 6:54:00 EDT, Capsule, [facility]/pharmacy #[id number], 155, cm, 05/11/20 1:07:00 EDT, Height, [...] 4 Active (Confirmed) Active 1Sees therapist at [facility], not currently on medications 2Sees therapist at [facility], not currently on medications 3bilateral hip dysplasia, surgery deferred due to . Followed initially by BRIANA then referred to [place] in her past making pelvic exams traumatic Social History Social History Type Response Smoking Status Never (less than 100 in lifetime) entered on: 09/27/19 Sex Female
--- OUTSIDE RECORDS SUMMARY | 2023-03-04 01:07 | XMS_ITS | Summary of Care ---
Author Name Unknown Organization [facility] Address [address] [place] [address]- Care Team Providers Care Parts Salesperson Name Role Phone KYLEIGH TREVINO, ANJUM Lara Primary Care Physi beth Encounter [id number] Date(s): 12/13/21 - 12/13/[address] [address]- Discharge Disposition: Discharge Attending Physician: ARCADIO TREVINO, PhD, [facility] Referring Physician: TUCKER MCNAIR MD Allergies, Adverse Reactions, Alerts Substance Reaction Severity Status Topamax Psychiatric sign Active Medications Nexplanon mg, IMP, 1time, Entered: 12/13/21 11:08:00 EDT Start Date: 12/13/21 Status: Ordered
--- OUTSIDE RECORDS SUMMARY | 2023-03-04 01:07 | XMS_ITS | Continuity of Care Document ---
Author Name Unknown Organization [facility] Address [address] [place] [address]- Care Team Providers Care Tube Bender Hand Name Role Phone Mali TREVINO, Don Primary Care Physician [place] [facility] [place] 12/31/19 - 01/03/[address] [address]- [facility] Discharge Disposition: A-D/C Home Attending Physician: Alize Buchanan MD Admitting Physician: Gil Garvey MD Referring Physician: Not on Staff, Referring MD Allergies, Adverse Reactions, Alerts Substance Reaction [...] 01/14/20 15:08:00 EDT, 01/03/20 15:08:00 EDT, Capsule, [facility], 155.4, cm, 01/03/20 7:57:00 EDT, Height, 75.4, kg, 12/31/19 10:01:00 EDT, Dry Weight Start Date: 01/03/20 Stop Date: 01/14/20 Status: Ordered Multivitamins with Folic Acid 1 mg oral tablet 1 tablet, By Mouth, Daily, # 90 tablet, 3 Refills, Maintenance, 09/27/19 10:06:00 EST, Tablet, [facility], 1 tablet By Mouth Daily, 179, cm, 09/27/19 9:37:00 EST, Height, 122.9, kg, 09/18/19 22:24:00 EST, Dry Weight Start Date: 09/27/19 Status: Ordered Tylenol 325 mg oral capsule 2 capsule = 650 mg, By Mouth, Every 4 hours, PRN as needed for pain, not to exceed 4000 mg/day, # 90 capsule, 0 Refills, Maintenance, 10/17/19 21:15:00 EDT, Capsule, [facility], 179, cm, 09/18/19 22:25:00 EST, Height, 122.9, kg, 09/18/19... Start Date: 10/17/19 Status: Ordered Problem List Condition Effective Dates Status Health Status Inform ant Anxiety(Confirmed) 1 Active Constipation(Confirmed) Active Depression(Confirmed) 2 Active Hip dysplasia(Confirmed) 3 Active (Confirmed) Active 1Sees therapist at [facility], not currently on medications 2Sees therapist at [facility], not currently on medications 3bilateral hip dysplasia, surgery deferred due to . Followed initially by BRIANA then referred to [place] Results Orders for Microbiology Reports Name Date Wet Prep 12/31/19 Blood Culture 12/31/19 Blood Culture #2 12/31/19 Urine Culture (URINE CULTURE) 12/31/19 Microbiology Reports TEST:Wet Prep STATUS:Auth (Verified) BODY SITE: SOURCE:VAGINA COLLECTED DATE/TIME:12/31/19 5:30 AM Wet Prep SPECIMEN DESCRIPTION : VAGINAL SPECIMEN SPECIAL REQUESTS : NONE DIRECT EXAM : NO TRICHOMONAS,YEAST,OR CLUE CELLS OBSERVED 1+ WHITE BLOOD CELLS REPORT STATUS : FINAL 12/31/2019 TEST:Blood Culture, Second Order STATUS:Unauthenticated BODY SITE: SOURCE:Blood COLLECTED DATE/TIME:12/31/19 4:15 AM Blood Culture, Second Order SPECIMEN DESCRIPTION : BLOOD RAC SPECIAL REQUESTS : NONE CULTURE : NO GROWTH 3 DAYS REPORT STATUS : PRELIMINARY REPORT TEST:Blood Culture STATUS:Unauthenticated BODY SITE: SOURCE:Blood COLLECTED DATE/TIME:12/31/19 4:06 AM Blood Culture SPECIMEN DESCRIPTION : BLOOD LAC SPECIAL REQUESTS : NONE CULTURE : NO GROWTH 3 DAYS REPORT STATUS : PRELIMINARY REPORT TEST:Urine Culture STATUS:Auth (Verified) BODY SITE: SOURCE:URINE COLLECTED DATE/TIME:12/31/19 1:00 AM Urine Culture SPECIMEN DESCRIPTION : URINE SPECIAL REQUESTS : NONE CULTURE : >100,000 COL/ML ESCHERICHIA COLI REPORT STATUS : FINAL 01/02/2020 ORGANISM >100,000 COL/ML ESCHERICHIA COLI METHOD MIN. INHIB. CONC. (MCG/ML) AMPICILLIN RESISTANT AMPICILLIN/SULBACTAM SUSCEPTIBLE AMOXICILLIN/CLAVULAN SUSCEPTIBLE CEFAZOLIN SUSCEPTIBLE CEFEPIME SUSCEPTIBLE CEFTRIAXONE SUSCEPTIBLE CIPROFLOXACIN SUSCEPTIBLE ERTAPENEM SUSCEPTIBLE GENTAMICIN SUSCEPTIBLE LEVOFLOXACIN SUSCEPTIBLE MEROPENEM SUSCEPTIBLE NITROFURANTOIN SUSCEPTIBLE PIPERACILLIN/TAZOBAC SUSCEPTIBLE TRIMETH/SULFAMETHOX SUSCEPTIBLE TETRACYCLINE SUSCEPTIBLE Vital Signs Most recent to oldest [Reference Range]: 1 2 3 Height 155.4 cm (01/03/20 7:57 AM) 155.4 cm (01/02/20 7:00 PM) 155.4 cm (01/02/20 7:41 AM) Weight 75.4 kg (12/31/19 10:01 AM) 75.4 kg (12/31/19 9:04 AM) 122.6 kg (12/31/19 7:50 AM) Oxygen Saturation [94-100 %] 99 % (01/03/20 7:57 AM) 98 % (01/02/20 7:00 PM) 100 % (01/02/20 7:41 AM) Pulse Rate [55-90 bpm] 66 bpm (01/03/20 7:57 AM) 82 bpm (01/02/20 7:00 PM) 94 bpm *H* (01/02/20 7:41 AM) Body Mass Index [18.5-24.99] 31.22 *>HHI* (12/31/19 10:01 AM) 31.22 *>HHI* (12/31/19 9:04 AM) Blood Pressure [90-138/55-84 mm Hg] 104/49mm Hg (01/03/20 7:57 AM) 116/60mm Hg (01/02/20 7:00 PM) 110/56mm Hg (01/02/20 7:41 AM) Respiratory Rate [16-30 br/min] 18 br/min (01/03/20 11:22 AM) 20 br/min (01/03/20 7:57 AM) 20 br/min (01/03/20 3:27 AM) Temperature [96.8-100.4 DegF] 97.5 DegF (01/03/20 7:57 AM) 98.2 DegF (01/02/20 7:00 PM) 98.6 DegF (01/02/20 7:41 AM) Mode of Delivery (Oxygen) Room air (01/03/20 7:57 AM) Room air (01/02/20 7:00 PM) Room air (01/02/20 7:41 AM) Blood pressure sites Arm, right (01/03/20 7:57 AM) Arm, right (01/02/20 7:00 PM) Arm, right (01/02/20 7:41 AM) Temperature Route Oral (01/03/20 7:57 AM) Oral (01/02/20 7:00 PM) Oral (01/02/20 7:41 AM) Dry Weight 75.4 kg (12/31/19 10:01 AM) 75.4 kg (12/31/19 9:04 AM) 122.6 kg (12/31/19 7:50 AM) Weight Obtained Via Standing scale (12/31/19 12:22 AM) Social History Social History Type Response Smoking Status Never (less than 100 in lifetime) entered on: 09/27/19 Sex
--- OUTSIDE RECORDS SUMMARY | 2023-03-04 01:07 | XMS_ITS | Continuity of Care Document ---
Author Name Unknown Organization [facility] Address [address] [place] [phone]- Care Team Providers Care Product Test Engineer Name Role Phone Don Samson MD Primary Care Physician En[place] [facility] [place] Date(s): 05/04/20 - 06/09/[address] [address]- [facility] Attending Physician: Alexandre Li MD Admitting Physician: Alexandre Li MD Referring Physician: Purvi Reyes CNM Allergies, Adverse Reactions, [...] Replace Required Details, Route to Pharmacy Electronically, [facility]/pharmacy #[id number]... Start Date: 05/11/20 Status: Ordered ibuprofen [...] Acute 09/13/20 10:25:00 EST, 01/17/20 10:25:00 EDT, [facility]/pharmacy #[id number], suppression daily for hx pyelo in , 155.4, cm, 01/17/20 10:06:00 EDT, Height, 75.4, kg, ... Start Date: 01/17/20 Stop Date: 09/13/20 Status: Ordered Multivitamins with Folic Acid 1 mg oral tablet 1 tablet, By Mouth, Daily, # 90 tablet, 3 Refills, Maintenance, 09/27/19 10:06:00 EST, Tablet, [facility] 3, 1 tablet By Mouth Daily, 179, cm, 09/27/19 9:37:00 EST, Height, 122.9, kg, 09/18/19 22:24:00 EST, Dry Weight Start Date: 09/27/19 Status: Ordered Tylenol 325 mg oral capsule 2 capsule = 650 mg, By Mouth, Every 4 hours, PRN as needed for pain, not to exceed 4000 mg/day, # 90 capsule, 0 Refills, Maintenance, 05/11/20 6:54:00 EDT, Capsule, [facility]/pharmacy #[id number], 155, cm, 05/11/20 1:07:00 EDT, Height, [...] 4 Active (Confirmed) Active 1Sees therapist at [facility], not currently on medications 2Sees therapist at [facility], not currently on medications 3bilateral hip dysplasia, surgery deferred due to . Followed initially by BRIANA then referred to [place] in her past making pelvic exams traumatic Social History Social History Type Response Smoking Status Never (less than 100 in lifetime) entered on: 09/27/19 Sex Female
--- OUTSIDE RECORDS SUMMARY | 2023-03-04 01:07 | XMS_ITS | Continuity of Care Document ---
Author Name Unknown Organization [facility] Address [address] [place] [phone]- Care Team Providers Care Fork Lift Mechanic Name Role Phone Don Samson MD Primary Care Physician Encounter [facility] [place] Date(s): 12/17/19 - 12/24/[address] [address]- [facility] Attending Physician: Romero Brenner MD Allergies, Adverse Reactions, [...] 3 Refills, Maintenance, 09/27/19 10:06:00 EST, Tablet, [facility], 1 tablet By Mouth Daily, 179, cm, 09/27/19 9:37:00 EST, Height, 122.9, kg, 09/18/19 22:24:00 EST, Dry Weight Start Date: 09/27/19 Status: Ordered Tylenol 325 mg oral capsule 2 capsule = 650 mg, By Mouth, Every 4 hours, PRN as needed for pain, not to exceed 4000 mg/day, # 90 capsule, 0 Refills, Maintenance, 10/17/19 21:15:00 EDT, Capsule, [facility], 179, cm, 09/18/19 22:25:00 EST, Height, 122.9, kg, 09/18/19... Start Date: 10/17/19 Status: Ordered Problem List Condition Effective Dates Status Health Status Inform ant Anxiety(Confirmed) 1 Active Constipation(Confirmed) Active Depression(Confirmed) 2 Active Hip dysplasia(Confirmed) 3 Active (Confirmed) Active 1Sees therapist at [facility], not currently on medications 2Sees therapist at [facility], not currently on medications 3bilateral hip dysplasia, surgery deferred due to . Followed initially by BRIANA then referred to [place] Social History Social History Type Response Smoking Status Never (less than 100 in lifetime) entered on: 09/27/19 Sex
--- OUTSIDE RECORDS SUMMARY | 2023-03-04 01:07 | XMS_ITS | Continuity of Care Document ---
Author Name Unknown Organization [facility] Address [address] [place] [phone]- Care Team Providers Care Transportation Supervisor Name Role Phone Don Samson MD Primary Care Physician Encounter [facility] Date(s): 02/28/20 - 04/12/[address] [address]- [facility] Attending Physician: Not on Staff, [...] 09/13/20 10:25:00 EST, 01/17/20 10:25:00 EDT, [id number], suppression daily for hx pyelo in , 155.4, cm, 01/17/20 10:06:00 EDT, Height, 75.4, kg, ... Start Date: 01/17/20 Stop Date: 09/13/20 Status: Ordered Multivitamins with Folic Acid 1 mg oral tablet 1 tablet, By Mouth, Daily, # 90 tablet, 3 Refills, Maintenance, 09/27/19 10:06:00 EST, Tablet, [facility], 1 tablet By Mouth Daily, 179, cm, 09/27/19 9:37:00 EST, Height, 122.9, kg, 09/18/19 22:24:00 EST, Dry Weight Start Date: 09/27/19 Status: Ordered Tylenol 325 mg oral capsule 2 capsule = 650 mg, By Mouth, Every 4 hours, PRN as needed for pain, not to exceed 4000 mg/day, # 90 capsule, 0 Refills, Maintenance, 10/17/19 21:15:00 EDT, Capsule, [facility], 179, cm, 09/18/19 22:25:00 EST, Height, 122.9, kg, 09/18/19... 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 Followed initially by BRIANA then referred to [place] [facility] in her past making pelvic exams traumatic Social History Social History Type Response Smoking Status Never (less than 100 in lifetime) entered on: 09/27/19 Sex
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
--- OUTSIDE RECORDS SUMMARY | 2023-03-04 01:07 | XMS_ITS | Continuity of Care Document ---
Author Name Unknown Organization [facility] Address [address] [place] [address]- Care Team Providers Care Snaker Tractor Driver Name Role Phone Don Samson MD Primary Care Physician Encounter [facility] Date(s): 04/06/20 - 05/12/[address] [address]- [facility] Attending Physician: Courtney Hyatt MD [...] Replace Required Details, Route to Pharmacy Electronically, [facility]/pharmacy #[id number]... Start Date: 05/11/20 Status: Ordered ibuprofen 800 [...] Acute 09/13/20 10:25:00 EST, 01/17/20 10:25:00 EDT, [facility]/pharmacy #[id number], suppression daily for hx pyelo in , 155.4, cm, 01/17/20 10:06:00 EDT, Height, 75.4, kg, ... Start Date: 01/17/20 Stop Date: 09/13/20 Status: Ordered Multivitamins with Folic Acid 1 mg oral tablet 1 tablet, By Mouth, Daily, # 90 tablet, 3 Refills, Maintenance, 09/27/19 10:06:00 EST, Tablet, [facility], 1 tablet By [...] 4 Active (Confirmed) Active 1Sees therapist at [facility], not currently on medications 2Sees therapist at [facility], not currently on medications 3bilateral hip dysplasia, surgery deferred due to . Followed initially by BRIANA then referred to [place] in her past making pelvic exams traumatic Social History Social History Type Response Smoking Status Never (less than 100 in lifetime) entered on: 09/27/19 Sex
--- OUTSIDE RECORDS SUMMARY | 2023-03-04 01:07 | XMS_ITS | Summary of Care ---
Author Name Unknown Organization [facility] Address [address] [place] [address]- Care Team Providers Care Trademark Paralegal Name Role Phone KYLEIGH TREVINO, ANJUM Lara Primary Care Physi beth Encounter [id number] Date(s): 09/28/21 - 09/28/[address] [address]- Discharge Disposition: Discharge Attending Physician: TUCKER MCNAIR MD Referring Physician: [facility] Allergies, Adverse Reactions, Alerts Substance Reaction Severity Status Topamax Psychiatric sign Active
--- OUTSIDE RECORDS SUMMARY | 2023-03-04 01:07 | XMS_ITS | Continuity of Care Document ---
Author Name Unknown Organization [facility] ter Address [address] [place] [address]- Care Team Providers Care Hassock Maker Name Role Phone Mali TREVINO, Don Primary Care Physician Encounter [facility] Date(s): 07/29/19 - 07/29/[address] [address]- [place] Encounter Diagnosis Contusion of lower back(Final) - 07/29/19 Discharge Disposition: A-D/C Home Attending Physician: Bonny Rebollar MD Admitting Physician: Bonny Rebollar MD Referring Physician: Not on Staff, Referring MD Allergies, Adverse Reactions, Alerts Substance Reaction Severity Status Topamax Active Immunizations Given and Recorded Vaccine Date Status Refusal Reason Boostrix (Tdap) (oldterm) 01/01/11 Given influenza virus vaccine, inactivated 1 07/25/10 Gi humberto 1Admin Note: VIS given Medications Clonidine 0 Refills, Maintenance, 01/27/18 11:29:04 EDT Start Date: 01/27/18 Status: Ordered Crutches See Instructions, # 1 pair, Maintenance, knee sprain, 05/24/15 18:17:25, Compound Start Date: 05/24/15 Status: Ordered diclofenac 1% topical gel 1 application, Topically, 4 times a day, PRN for pain, # 100 Gm, 0 Refills, Maintenance, 07/27/18 22:22:51 EST, Gel Start Date: 07/27/18 Stop Date: 08/10/18 Status: Ordered HydrOXYzine 0 Refills, Maintenance, 01/27/18 11:28:28 EDT Start Date: 01/27/18 Status: Ordered ibuprofen 600 mg oral tablet 600 mg, 1, tablet, By Mouth, Every 6 hours, # 40 tablet, Refills 0, Tot. Refills 0, Maintenance, 11/26/15 22:29:36, Print Requisition Start Date: 11/26/15 Status: Ordered ibuprofen 600 mg oral tablet 600 mg, 1, tablet, By Mouth, Every 6 hours, # 30 tablet, Refills 0, Tot. Refills 0, Maintenance, 01/17/18 20:42:32 EDT, Print Requisition Start Date: 01/17/18 Status: Ordered lamotrigine 25 mg oral tablet 25 mg, 1, tablet, By Mouth, 2 times a day, Refills 0, Maintenance, 06/12/18 11:49:36 EDT Start Date: 06/12/18 Status: Ordered lidocaine-menthol 3.6%-1.25% topical film 1 patch, Topically, Daily, # 30 each, 0 Refills, Maintenance, 07/27/18 22:21:51 EST Start Date: 07/27/18 Stop Date: 08/10/18 Status: Ordered Lidoderm 5% film See Instructions, Topically Daily to your left lower back remove patches after 12 hours, # 10 patch, 0 Refills, Maintenance, 07/29/19 14:02:00 EST, [facility], Topically Daily to your left lower back; remove patches after 12 hours, 178,... Start Date: 07/29/19 Status: Ordered raNITIdine 150 mg oral tablet 1 tablet = 150 mg, By Mouth, 2 times a day, # 28 tablet, 0 Refills, Maintenance, 06/02/18 17:08:30 EDT Start Date: 06/02/18 Stop Date: 06/16/18 Status: Ordered Trazodone By Mouth, 0 Refills, Maintenance, 01/27/18 11:29:16 EDT Start Date: 01/27/18 Status: Ordered Zoloft 25 mg oral tablet 1 tablet = 25 mg, By Mouth, Daily, 0 Refills, Maintenance, 06/12/18 11:37:27 EDT Start Date: 06/12/18 Status: Ordered Problem List Condition Effective Dates Status Health Status Inform ant ASCUS pap(Confirmed) 2012 Active Constipation(Confirmed) Active Laceration of finger(Confirmed) Active Results Radiology Reports * Exam Date Time Procedure Performing Provider Status 07/29/19 1:51 PM Lumbar Spine 2 or 3 Views Jesusita Lozanoer; Auth (Verified) Notes: (Lumbar Spine 2 or 3 Views) Reason For Exam: with Pain;Trauma RESULT: Lumbar Spine 2 or 3 Views Lumbar Spine 2 or 3 Views INDICATION/CLINICAL QUESTION: Back pain following fall down stairs. TECHNIQUE: AP, lateral, and coned-down lateral views. COMPARISON: None. FINDINGS: There is normal segmentation. There is no fracture. There is no focal bony lesion. The alignment is normal including no spondylolisthesis. The discs are of normal height no degenerative change. IMPRESSION: 1. No fracture or focal lesion. 2. No spondylolisthesis. 3. No degenerative changes.. WSN: [id number] Dictated By: Lio Menon MD Dictated Date/Time: 07/29/19 1:55 pm Reviewed By: Lio Menon MD Signed By: Lio Menon MD Signed Date/Time: 07/29/19 1:55 pm Transcribed By: JOANNE Transcribed Date/Time: 07/29/19 1:54 pm * Exam Date Time Procedure Performing Provider Status 07/29/19 1:51 PM Thoracic Spine 3 Views Rossana Lozano er; Auth (Verified) Notes: (Thoracic Spine 3 Views) Reason For Exam: With Pain;Trauma RESULT: Thoracic Spine 3 Views Thoracic Spine 3 Views INDICATION/CLINICAL QUESTION: Back pain following fall down stairs today. TECHNIQUE: AP, lateral, and swimmer's views.. COMPARISON: None. FINDINGS: There is no fracture. There is no focal bony lesion. Vertebral bodies are in normal alignment. The discs are normal height and without degenerative change. IMPRESSION: 1. No fracture or focal bony lesion. 2. Normal alignment. 3. No degenerative changes. WSN: [id number] Dictated By: Lio Menon MD Dictated Date/Time: 07/29/19 1:53 pm Reviewed By: Lio Menon MD Signed By: Lio Menon MD Signed Date/Time: 07/29/19 1:53 pm Transcribed By: JOANNE Transcribed Date/Time: 07/29/19 1:53 pm Vital Signs Most recent to oldest [Reference Range]: 1 2 3 Height 178 cm (07/29/19 2:29 PM) 178 cm (07/29/19 12:49 PM) 178 cm (07/29/19 9:59 AM) Weight 115 kg (07/29/19 2:29 PM) 115 kg (07/29/19 12:49 PM) 115 kg (07/29/19 9:59 AM) Oxygen Saturation [94-100 %] 100 % (07/29/19 2:29 PM) 100 % (07/29/19 12:49 PM) 97 % (07/29/19 9:59 AM) Pulse Rate [55-90 bpm] 64 bpm (07/29/19 2:29 PM) 79 bpm (07/29/19 12:49 PM) 85 bpm (07/29/19 9:59 AM) Body Mass Index [18.5-24.99] 36.3 *>HHI* (07/29/19 2:29 PM) 36.3 *>HHI* (07/29/19 12:49 PM) Blood Pressure [90-138/55-84 mm Hg] 123/64mm Hg (07/29/19 2:29 PM) 114/59mm Hg (07/29/19 12:49 PM) 120/68mm Hg (07/29/19 9:59 AM) Respiratory Rate [16-30 br/min] 17 br/min (07/29/19 2:29 PM) 18 br/min (07/29/19 1:51 PM) 18 br/min (07/29/19 1:18 PM) Temperature [96.8-100.4 DegF] 98.1 DegF (07/29/19 9:59 AM) Mode of Delivery (Oxygen) Room air (07/29/19 2:29 PM) Room air (07/29/19 12:49 PM) Room air (07/29/19 9:59 AM) Blood pressure sites Arm, left (07/29/19 2:29 PM) Arm, right (07/29/19 12:49 PM) Arm, left (07/29/19 9:59 AM) Temperature Route Oral (07/29/19 9:59 AM) Dry Weight 115 kg (07/29/19 2:29 PM) 115 kg (07/29/19 12:49 PM) 115 kg (07/29/19 9:59 AM) Weight Obtained Via Patient/family state d (07/29/19 9:59 AM) Dry Weight Obtained Via Patient/family s tated (07/29/19 9:59 AM) Social History Social History Type Response Smoking Status Current every day renetta torres; Type: Cigarettes entered on: 04/26/14 Sex
--- OUTSIDE RECORDS SUMMARY | 2023-03-04 01:07 | XMS_ITS | Continuity of Care Document ---
Author Name Unknown Organization [facility] Address [address] [place] [address]- Care Team Providers Care Special Machine Stitcher Name Role Phone Don Samson MD Primary Care Physician ( [phone] Encounter [facility] Date(s): 06/08/20 - 09/21/[address] [address]- Attending Physician: Purvi Reyes CNM Admitting Physician: [...] Route to Pharmacy Electronically, [facility]/pharmacy #[id number]... Start Date: 05/11/20 Status: Ordered ibuprofen [...] 3 Refills, Maintenance, 09/27/19 10:06:00 EST, Tablet, [facility], 1 tablet By Mouth Daily, 179, cm, 09/27/19 9:37:00 EST, Height, 122.9, kg, 09/18/19 22:24:00 EST, Dry Weight Start Date: 09/27/19 Status: Ordered Tylenol 325 mg oral capsule 2 capsule = 650 mg, By Mouth, Every 4 hours, PRN as needed for pain, not to exceed 4000 mg/day, # 90 capsule, 0 Refills, Maintenance, 05/11/20 6:54:00 EDT, Capsule, [facility]/pharmacy #[id number], 155, cm, 05/11/20 1:07:00 EDT, Height, [...] Active (Confirmed) Active 1Sees therapist at [facility], not currently on medications 2Sees therapist at [facility], not currently on medications 3bilateral hip dysplasia, surgery deferred due to . Followed initially by BRIANA then referred to [place] in her past making pelvic exams traumatic Social History Social History Type Response Smoking Status Never (less than 100 in lifetime) entered on: 09/27/19 Sex Female
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
--- OUTSIDE RECORDS SUMMARY | 2023-03-04 01:07 | XMS_ITS | Continuity of Care Document ---
Author Name Unknown Organization [facility] ter Address [address] [place] [address]- Care Team Providers Care Mainspring Fabrication Supervisor Name Role Phone Don Samson MD Primary Care Physician Encounter [facility] Date(s): 05/09/20 - 05/11/[address] [address]- [facility] Discharge Disposition: A-D/C Home Attending Physician: Romero [...] Replace Required Details, Route to Pharmacy Electronically, [facility]/pharmacy #[id number]... Start Date: 05/11/20 Status: Ordered ibuprofen 800 [...] Acute 09/13/20 10:25:00 EST, 01/17/20 10:25:00 EDT, [facility]/pharmacy #[id number], suppression daily for hx pyelo in , 155.4, cm, 01/17/20 10:06:00 EDT, Height, 75.4, kg, ... Start Date: 01/17/20 Stop Date: 09/13/20 Status: Ordered Multivitamins with Folic Acid 1 mg oral tablet 1 tablet, By Mouth, Daily, # 90 tablet, 3 Refills, Maintenance, 09/27/19 10:06:00 EST, Tablet, [facility] 3, 1 tablet By Mouth Daily, [...] 4 Active (Confirmed) Active 1Sees therapist at [facility], not currently on medications 2Sees therapist at [facility], not currently on medications 3bilateral hip dysplasia, surgery deferred due to . [place] [facility] [place] [address] [place] making pelvic exams traumatic Vital Signs Most recent to oldest [Reference Range]: 1 2 3 Height 155 cm (05/11/20 9:45 AM) 155 cm (05/11/20 12:00 AM) 155 cm (05/10/20 4:07 PM) Weight 130 kg (05/09/20 3:53 AM) Oxygen Saturation [94-100 %] 98 % (05/11/20 12:00 AM) 98 % (05/09/20 10:44 PM) 99 % (05/09/20 3:50 AM) Pulse Rate [55-90 bpm] 83 bpm (05/11/20 9:45 AM) 86 bpm (05/11/20 12:00 AM) 94 bpm *H* (05/10/20 4:07 PM) Body Mass Index [18.5-24.99] 54.11 *>HHI* (05/09/20 3:53 AM) Blood Pressure [90-138/55-84 mm Hg] 118/76mm Hg (05/11/20 9:45 AM) 121/74mm Hg (05/11/20 12:00 AM) 113/62mm Hg (05/10/20 4:07 PM) Respiratory Rate [16-30 br/min] 20 br/min (05/11/20 1:08 PM) 20 br/min (05/11/20 1:08 PM) 20 br/min (05/11/20 9:56 AM) Temperature [96.8-100.4 DegF] 97.7 DegF (05/11/20 9:45 AM) 98.2 DegF (05/11/20 12:00 AM) 98.9 DegF (05/10/20 4:07 PM) Mode of Delivery (Oxygen) Room air (05/11/20 12:00 AM) Room air (05/10/20 7:28 AM) Room air (05/09/20 10:44 PM) Blood pressure sites Arm, right (05/11/20 9:45 AM) Arm, right (05/10/20 7:28 AM) Arm, right (05/09/20 10:44 PM) Temperature Route Oral (05/11/20 9:45 AM) Oral (05/11/20 12:00 AM) Oral (05/10/20 4:07 PM) Dry Weight 130 kg (05/09/20 3:53 AM) Social History Social History Type Response Smoking Status Never (less than 100 in lifetime) entered on: 09/27/19 Sex
--- OUTSIDE RECORDS SUMMARY | 2023-03-04 01:07 | XMS_ITS | Summary of Care ---
Author Name Unknown Organization [facility] Address [address] [place] [address]- Care Team Providers Care Freight Breaker Name Role Phone KYLEIGH TREVINO, ANJUM Lara Primary Care Physi beth Encounter [facility] [id number] Date(s): 09/28/21 - 09/28/[address] [address]- Discharge Disposition: Discharge Attending Physician: TUCKER MCNAIR MD Referring Physician: [facility] Allergies, Adverse Reactions, Alerts Substance Reaction Severity Status Topamax Psychiatric sign Active
[2023-03-04 02:59] VITALS: BP 131/71; PULSE 68; RESP 16; TEMP 36.8; O2SAT 97
--- NOTE | 2023-03-04 03:21 | ED_ITS ---
HPI - Female Genitourinary General Chief complaint: Vaginal Bleeding Stated complaint: vag bleeding 4 wks/ kidney area pain Time Seen by Provider: 03/04/23 03:21 Source: patient Mode of arrival: ambulatory Limitations: no limitations History of Present Illness HPI Narrative: Patient with vaginal bleeding , spotting with sometimes clots for last 1 month has Nexplanon implant since last year has history of similar bleeding in the past also patient complaining of lower back pain does have history of hip dysplasia awaiting for hip transplant patient not taking any Nsaid no significant abdominal pain Related Data Previous Rx's Medication Instructions Recorded cyclobenzaprine 10 mg tablet 10 mg PO TID PRN muscle spasm #10 10/15/20 tabs ibuprofen 600 mg tablet 600 mg PO Q8H PRN pain #20 tabs 10/15/20 lidocaine 5 % topical patch 1 patch topical DAILY #15 ea 10/15/20 (Lidoderm) lidocaine 5 % topical patch 1 patch topical DAILY #15 ea 07/18/21 (Lidoderm) methocarbamol 750 mg tablet 750 mg PO Q6H PRN pain #15 tabs 07/18/21 naproxen 500 mg tablet 500 mg PO BID PRN pain #30 tabs 07/18/21 acetaminophen 650 mg 650 mg PO Q8H PRN pain #30 tabs 03/04/23 tablet,extended release (Tylenol Arthritis Pain) cyclobenzaprine 10 mg tablet 10 mg PO Q8H #20 tabs 03/04/23 medroxyprogesterone 10 mg tablet 10 mg PO DAILY #7 tabs 03/04/23 (Provera) tramadol 50 mg tablet 50 mg PO Q6H PRN pain #20 tabs 03/04/23 Allergies Allergy/AdvReac Type Severity Reaction Status Date / Time topiramate [From TOPAMAX] Allergy Unknown PSYCHOTIC Verified 03/03/23 20:50 BREAK Review of Systems Review of Systems: Yes all other systems are reviewed and are negative PMFSH Past Medical History Medical History Anxiety Depression Hip dysplasia PTSD (post-traumatic stress disorder) Social History Social History Alcohol intake: current Alcohol intake frequency: 0-2 drinks per day Alcohol type: wine Smoked in Last 30 Days: Yes Use of substances other than those prescribed or required for medical reasons: No Advance Directives: No Advance Directives Information Provided: Yes Physical Exam Vital Signs: Vital Signs: Last Vital Signs Temp 98.2 F 03/04/23 02:59 Pulse 68 03/04/23 02:59 Resp 16 03/04/23 02:59 BP 131/71 03/04/23 02:59 Pulse Ox 97 03/04/23 02:59 O2 Del Method Room Air 03/04/23 02:59 BMI result Body Mass Index 36.7 Appearance: Alert. Oriented X3. No acute distress. Eyes: No pallor or icterus ENT: Pharynx normal. Oral Mucosa moist Neck: Normal inspection. Neck supple. CVS: Normal heart rate and rhythm. Pulses normal. Respiratory: No respiratory distress. Equal air entry bilateral, no wheezing/rales/rhonchi Abdomen: Soft and nontender. Bowel sounds are present, no mass palpable, no CVA tenderness Skin: Skin warm and dry. Normal skin color. Normal skin turgor. Extremities: No lower extremity edema. No calf tenderness Neuro: Oriented X 3. No motor deficit. 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 03/03/23 22:55 03/03/23 22:55 Labs: Lab Results 03/03/23 03/03/23 03/03/23 Range/Units 22:55 22:55 22:55 WBC 7.5 (4.8-10.8) X10*3/uL RBC 4.34 (4.20-5.50) X10*6/uL Hgb 12.3 (12.0-16.0) g/dl Hct 38.4 (37.0-47.0) % MCV 88.5 (80.0-98.0) fL MCH 28.3 (27.0-33.0) pg MCHC 32.0 (31.0-35.0) g/dl RDW 15.8 (11.0-16.0) % Plt Count 264 (160-400) X10*3/uL MPV 10.6 (9.4-12.3) fL Immature Gran % (Auto) 0.1 (0.0-0.4) % Neut % (Auto) 57.9 (45-73) % Lymph % (Auto) 31.5 (20-40) % [place] % (Auto) 9.4 (2-11) % Eos % (Auto) 0.8 (0-4) % Baso % (Auto) 0.3 (0-2) % Lymph # (Auto) 2.4 (1.2-4.9) X10*3/uL [place] # (Auto) 0.7 (0.1-1.2) X10*3/uL Eos # (Auto) 0.1 (0.0-0.4) X10*3/uL Baso # (Auto) 0.0 (0.0-0.2) X10*3/uL Abs Immat Gran (auto) 0.01 (0.00-0.03) X10*3/uL Absolute Neuts (auto) 4.3 (2.0-8.3) x10*3/uL Absolute Nucleated RBC 0.000 (0.0-0.012) X10*3/uL Nucleated RBC % (auto) 0.0 (0.0-0.2) /100WBC PT 13.1 (10.0-13.1) SEC INR 1.1 (0.9-1.1) APTT 32.2 (26.0-36.4) SEC Sodium 142 (135-145) mmol/L Potassium 3.1 L (3.3-5.1) mmol/L Chloride 109 H (96-108) mmol/L Carbon Dioxide 25 (22-29) mmol/L Anion Gap 11 L (12-20) BUN 8 L (9-16) mg/dL Creatinine 0.83 (0.5-1.4) mg/dL Estim Creat Clear Calc 134.4 Estimated GFR > 60 Random Glucose 129 H (60-115) mg/dL Calcium 9.4 (8.4-10.2) mg/dL Total Bilirubin 0.4 (0.0-1.0) mg/dL AST 15 (5-31) U/L ALT 18 (0-31) U/L Alkaline Phosphatase 76 (39-117) U/L Total Protein 7.2 (6.5-8.0) g/dL Albumin 4.2 (3.5-5.0) g/dL Lipase 15 (8-78) U/L Urine Color Urine Appearance Urine pH (5.0-9.0) Ur Specific [place] (1.005-1.025) Urine Protein (Neg-Trace) mg/dL Urine Glucose (UA) (Negative) mg/dL Urine Ketones (Negative) mg/dL Urine Blood (Negative) Urine Nitrite (Negative) Ur Leukocyte Esterase (Negative) Urine RBC (0-2) /HPF Urine WBC (0-5) /HPF Ur Squamous Epith Cells (0-2) /HPF Urine Bacteria (None Seen) Hyaline Casts (0-2) /LPF Urine Test (NEGATIVE) 03/04/23 03/04/23 Range/Units 03:21 03:21 WBC (4.8-10.8) X10*3/uL RBC (4.20-5.50) X10*6/uL Hgb (12.0-16.0) g/dl Hct (37.0-47.0) % MCV (80.0-98.0) fL MCH (27.0-33.0) pg MCHC (31.0-35.0) g/dl RDW (11.0-16.0) % Plt Count (160-400) X10*3/uL MPV (9.4-12.3) fL Immature Gran % (Auto) (0.0-0.4) % Neut % (Auto) (45-73) % Lymph % (Auto) (20-40) % [place] % (Auto) (2-11) % Eos % (Auto) (0-4) % Baso % (Auto) (0-2) % Lymph # (Auto) (1.2-4.9) X10*3/uL [place] # (Auto) (0.1-1.2) X10*3/uL Eos # (Auto) (0.0-0.4) X10*3/uL Baso # (Auto) (0.0-0.2) X10*3/uL Abs Immat Gran (auto) (0.00-0.03) X10*3/uL Absolute Neuts (auto) (2.0-8.3) x10*3/uL Absolute Nucleated RBC (0.0-0.012) X10*3/uL Nucleated RBC % (auto) (0.0-0.2) /100WBC PT (10.0-13.1) SEC INR (0.9-1.1) APTT (26.0-36.4) SEC Sodium (135-145) mmol/L Potassium (3.3-5.1) mmol/L Chloride (96-108) mmol/L Carbon Dioxide (22-29) mmol/L Anion Gap (12-20) BUN (9-16) mg/dL Creatinine (0.5-1.4) mg/dL Estim Creat Clear Calc Estimated GFR Random Glucose (60-115) mg/dL Calcium (8.4-10.2) mg/dL Total Bilirubin (0.0-1.0) mg/dL AST (5-31) U/L ALT (0-31) U/L Alkaline Phosphatase (39-117) U/L Total Protein (6.5-8.0) g/dL Albumin (3.5-5.0) g/dL Lipase (8-78) U/L Urine Color Dark Yellow Urine Appearance Clear Urine pH 6.0 (5.0-9.0) Ur Specific [place] >= 1.030 H (1.005-1.025) Urine Protein Trace (Neg-Trace) mg/dL Urine Glucose (UA) Negative (Negative) mg/dL Urine Ketones Trace (Negative) mg/dL Urine Blood Large (3+) H (Negative) Urine Nitrite Negative (Negative) Ur Leukocyte Esterase Negative (Negative) Urine RBC 3-5 H (0-2) /HPF Urine WBC 0-5 (0-5) /HPF Ur Squamous Epith Cells 0-2 (0-2) /HPF Urine Bacteria None Seen (None Seen) Hyaline Casts 0-2 (0-2) /LPF Urine Test NEGATIVE (NEGATIVE) Discharge Plan Discharge Clinical Impression: Dysfunctional uterine bleeding Patient Disposition: Home, Self-Care Instructions: Dysfunctional Uterine Bleeding (ED) Additional Instructions: Take medication as prescribed and 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 Prescriptions: New medroxyprogesterone [Provera] 10 mg tablet 10 mg PO DAILY Qty: 7 0RF acetaminophen [Tylenol Arthritis Pain] 650 mg tablet extended release 650 mg PO Q8H PRN (Reason: pain) Qty: 30 0RF cyclobenzaprine 10 mg tablet 10 mg PO Q8H Qty: 20 0RF tramadol 50 mg tablet 50 mg PO Q6H PRN (Reason: pain) Qty: 20 0RF No Action cyclobenzaprine 10 mg tablet 10 mg PO TID PRN (Reason: muscle spasm) Qty: 10 0RF lidocaine [Lidoderm] 5 % adhesive patch,medicated 1 patch topical DAILY Qty: 15 0RF Rx Instructions: leave on most painful area for up to 12 hrs ibuprofen 600 mg tablet 600 mg PO Q8H PRN (Reason: pain) Qty: 20 0RF naproxen 500 mg tablet 500 mg PO BID PRN (Reason: pain) Qty: 30 0RF methocarbamol 750 mg tablet 750 mg PO Q6H PRN (Reason: pain) Qty: 15 0RF lidocaine [Lidoderm] 5 % adhesive patch,medicated 1 patch topical DAILY Qty: 15 0RF Rx Instructions: leave on most painful area for up to 12 hrs Referrals: Sergio Bennett MD [Physician] - 5 days Stand Alone Forms: Work/School Release Interventions: ED Discharge Assessment Last Done: 03/04/23 04:09 Discharge Date/Time: 03/04/23 04:10
[2023-03-04 03:27] LABS: Appearance Urine Clear; Color Urine Dark Yellow; Glucose Urine UA Negative (Negative); Leukocyte Esterase Urine Negative (Negative); Nitrite Urine Negative (Negative); Specific Gravity - Urine >= 1.030 (1.005-1.025); UMIC TRIGGER UACC YES; Urine Blood Large (3+) (Negative); Urine Ketones Trace mg/dL (Negative); Urine Protein Trace mg/dL (Neg-Trace)
[2023-03-04 03:28] LABS: UPreg QC Valid YES; Urine Pregnancy NEGATIVE (NEGATIVE)
[2023-03-04 03:52] LABS: Bacteria Urine None Seen (None Seen); Hyaline Casts Urine 0-2 /LPF (0-2); Squamous Epithelial Cell Urine 0-2 /HPF (0-2); WBC Urine 0-5 /HPF (0-5)
[2023-03-04] MEDS: Acetaminophen 325 MG TABLET 650 MG PO (04:05)
== END 2023-03-04 04:10 | disposition home or self-care (01) ==
PROVIDERS: Physician Assistant; Emergency Provider Internal Medicine; PCP Internal Medicine
DX: N93.8 Other specified abnormal uterine and vaginal bleeding (principal); M54.50 Low back pain, unspecified
CPT/HCPCS: 36415; 76830; 76856; 80053; 81001; 81025; 83690; 85025; 85610; 85730; 99284

== ENCOUNTER 2024-09-26 20:24 | Emergency (ER) | payer OTHER, SELFPAY ==
[2024-09-26 20:38] VITALS: BP 183/110; PULSE 119; RESP 20; TEMP 36.6; O2SAT 100; BMI 40.3
--- NOTE | 2024-09-26 20:38 | ED_ITS ---
HPI - Dental/Oral General Chief complaint: General Medical Stated complaint: rt side jaw swelling Time Seen by Provider: 09/27/24 01:36 Source: patient Mode of arrival: ambulatory Limitations: no limitations History of Present Illness ED Provider: HPI Narrative: Patient complaining of pain in the right angle of the jaw started just prior to arrival denies any sore throat fever or chills no rash no earache Related Data Previous Rx's ?Medication ?Instructions ?Recorded cyclobenzaprine 10 mg tablet 10 mg PO TID PRN muscle spasm #10 10/15/20 tabs ibuprofen 600 mg tablet 600 mg PO Q8H PRN pain #20 tabs 10/15/20 lidocaine 5 % topical patch 1 patch topical DAILY #15 ea 10/15/20 (Lidoderm) lidocaine 5 % topical patch 1 patch topical DAILY #15 ea 07/18/21 (Lidoderm) methocarbamol 750 mg tablet 750 mg PO Q6H PRN pain #15 tabs 07/18/21 naproxen 500 mg tablet 500 mg PO BID PRN pain #30 tabs 07/18/21 acetaminophen 650 mg 650 mg PO Q8H PRN pain #30 tabs 03/04/23 tablet,extended release (Tylenol Arthritis Pain) cyclobenzaprine 10 mg tablet 10 mg PO Q8H #20 tabs 03/04/23 medroxyprogesterone 10 mg tablet 10 mg PO DAILY #7 tabs 03/04/23 (Provera) tramadol 50 mg tablet 50 mg PO Q6H PRN pain #20 tabs 03/04/23 amoxicillin 875 mg-potassium 1 tab PO BID #20 tabs 09/27/24 clavulanate 125 mg tablet ibuprofen 600 mg tablet 600 mg PO Q6H PRN fever or pain 09/27/24 #30 tabs Allergies Allergy/AdvReac Type Severity Reaction Status Date / Time topiramate [From TOPAMAX] Allergy Unknown PSYCHOTIC Verified 09/26/24 20:43 BREAK Review of Systems 2 Review of Systems: Yes all other systems are reviewed and are negative PMFSH Past Medical History Medical History PTSD (post-traumatic stress disorder) Anxiety Depression Hip dysplasia Social History Social History Alcohol intake: current Alcohol intake frequency: holidays/special occasions only Alcohol type: wine Smoked in Last 30 Days: Yes Use of substances other than those prescribed or required for medical reasons: No Advance Directives: No Advance Directives Information Provided: Yes Physical Exam 2 Vital Signs: Vital Signs: Last Vital Signs Temp 98.4 F 09/27/24 04:02 Pulse 78 09/27/24 04:02 Resp 16 09/27/24 04:02 BP 159/98 H 09/27/24 04:02 Pulse Ox 97 09/27/24 04:02 O2 Del Method Room Air 09/27/24 01:44 BMI result Body Mass Index 40.3 Appearance: Alert. Oriented X3. No acute distress. ENT: Pharynx erythematous no exudates Oral Mucosa moist Neck: Normal inspection. Neck supple. Upper cervical lymphadenopathy on the right side tender to touch CVS: Normal heart rate and rhythm. Pulses normal. Respiratory: No respiratory distress. Equal air entry bilateral, no wheezing/rales/rhonchi Skin: Skin warm and dry. Normal skin color. Normal skin turgor. Extremities: No lower extremity edema. Neuro: Oriented X 3. Course Course Course Narrative: This is a Rapid Medical Exam performed in triage by Charley Navarro PA-C. Full HPI, ROS and PE to be performed by primary ED provider. 34 yo F w/PMHx PTSD, anxiety, depression, presenting to the ED c/o R sided jaw/facial pain and swelling since this afternoon, sudden onset while at [employer] w/kids. +difficulty swallowing. denies CP, recent dental procedures. Low suspicion for severe sepsis at this time PE: +right cheek erythema, +warmth & swelling w/+ttp. R TM with some erythema & buldging. Mastoid WNL. uvula midline. Plan: viral testing, rapid strep, ekg, labs Medications Administered Discontinued Medications Generic Name Dose Route Start Last Admin Trade Name Freq PRN Reason Stop Dose Admin Amoxicillin/Clavulanate Potassium 875 mg 09/27/24 02:37 09/27/24 02:55 Amoxicillin/Potassium Clav 875 Mg Tablet PO 09/27/24 02:38 875 mg ONCE ONE Administration Medical Decision Making Medical Decision Making MDM Narrative: Patient with right upper cervical lymphadenopathy with significant erythema and the throat strep positive infectious mononucleosis test is negative will discharge patient home on Augmentin Differential Diagnosis Strep throat/otitis media/infectious mononucleosis Lab Data [facility] Lab Attestation statement: I reviewed the patient's lab results. 09/26/24 21:01 09/26/24 21:01 Labs: Lab Results 09/26/24 09/26/24 09/27/24 Range/Units 21:00 21:01 03:18 WBC 8.4 (4.8-10.8) X10*3/uL RBC 4.58 (4.20-5.50) X10*6/uL Hgb 13.0 (12.0-16.0) g/dl Hct 40.1 (37.0-47.0) % MCV 87.6 (80.0-98.0) fL MCH 28.4 (27.0-33.0) pg MCHC 32.4 (31.0-35.0) g/dl RDW 16.6 H (11.0-16.0) % Plt Count 259 (160-400) X10*3/uL MPV 10.2 (9.4-12.3) fL Immature Gran % (Auto) 0.4 (0.0-0.4) % Neut % (Auto) 65.8 (45-73) % Lymph % (Auto) 23.7 (20-40) % [place] % (Auto) 9.2 (2-11) % Eos % (Auto) 0.7 (0-4) % Baso % (Auto) 0.2 (0-2) % Lymph # (Auto) 2.0 (1.2-4.9) X10*3/uL [place] # (Auto) 0.8 (0.1-1.2) X10*3/uL Eos # (Auto) 0.1 (0.0-0.4) X10*3/uL Baso # (Auto) 0.0 (0.0-0.2) X10*3/uL Abs Immat Gran (auto) 0.03 (0.00-0.03) X10*3/uL Absolute Neuts (auto) 5.5 (2.0-8.3) x10*3/uL Absolute Nucleated RBC 0.000 (0.0-0.012) X10*3/uL Nucleated RBC % (auto) 0.0 (0.0-0.2) /100WBC ESR 7 (0-20) MM/HR Sodium 141 (135-145) mmol/L Potassium 3.8 (3.3-5.1) mmol/L Chloride 109 H (96-108) mmol/L Carbon Dioxide 21 L (22-29) mmol/L Anion Gap 15 (12-20) BUN 9 (9-16) mg/dL Creatinine 0.80 (0.5-1.4) mg/dL Estim Creat Clear Calc 148.5 Estimated GFR > 60 Random Glucose 112 (60-115) mg/dL Calcium 8.9 (8.4-10.2) mg/dL Total Bilirubin 0.2 (0.0-1.0) mg/dL Direct Bilirubin < 0.2 (0.0-0.5) mg/dL AST 24 (5-31) U/L ALT 24 (0-31) U/L Alkaline Phosphatase 101 (39-117) U/L C-Reactive Protein 0.56 H (< or = 0.50) mg/dL Total Protein 7.6 (6.5-8.0) g/dL Albumin 4.1 (3.5-5.0) g/dL Monoscreen Negative (Negative) Influenza Type A (PCR) NEGATIVE (Negative) Influenza Type B (PCR) NEGATIVE (Negative) RSV RNA Qual (PCR) NEGATIVE (Negative) SARS-CoV-2 RNA (RT-PCR) NEGATIVE (Negative) S. pyogenes GrpA EVA Positive A (Negative) Discharge Plan Discharge Clinical Impression: Acute streptococcal pharyngitis Patient Disposition: Home, Self-Care Instructions: Strep Throat (DC) Additional Instructions: Drink plenty of fluids Ibuprofen for pain Antibiotic as prescribed Prescriptions: New ibuprofen 600 mg tablet 600 mg PO Q6H PRN (Reason: fever or pain) Qty: 30 0RF amoxicillin-pot clavulanate 875-125 mg tablet 1 tab PO BID Qty: 20 0RF No Action cyclobenzaprine 10 mg tablet 10 mg PO TID PRN (Reason: muscle spasm) Qty: 10 0RF lidocaine [Lidoderm] 5 % adhesive patch,medicated 1 patch topical DAILY Qty: 15 0RF Rx Instructions: leave on most painful area for up to 12 hrs ibuprofen 600 mg tablet 600 mg PO Q8H PRN (Reason: pain) Qty: 20 0RF naproxen 500 mg tablet 500 mg PO BID PRN (Reason: pain) Qty: 30 0RF methocarbamol 750 mg tablet 750 mg PO Q6H PRN (Reason: pain) Qty: 15 0RF lidocaine [Lidoderm] 5 % adhesive patch,medicated 1 patch topical DAILY Qty: 15 0RF Rx Instructions: leave on most painful area for up to 12 hrs medroxyprogesterone [Provera] 10 mg tablet 10 mg PO DAILY Qty: 7 0RF acetaminophen [Tylenol Arthritis Pain] 650 mg tablet extended release 650 mg PO Q8H PRN (Reason: pain) Qty: 30 0RF cyclobenzaprine 10 mg tablet 10 mg PO Q8H Qty: 20 0RF tramadol 50 mg tablet 50 mg PO Q6H PRN (Reason: pain) Qty: 20 0RF Interventions: ED Discharge Assessment Last Done: 09/27/24 04:02 Discharge Date/Time: 09/27/24 04:03 Print Language: Czech
--- NOTE | 2024-09-26 20:39 | ECG_ITS ---
Test Reason : JAW Pain Blood Pressure : */* mmHG Vent. Rate : 101 BPM Atrial Rate : 101 BPM P-R Int : 166 ms QRS Dur : 82 ms QT Int : 346 ms P-R-T Axes : 33 7 19 degrees QTcB Int : 448 ms Sinus tachycardia Minimal voltage criteria for LVH, may be normal variant ( R in aVL ) Borderline ECG No previous ECGs available Referred By: Charley Navarro Electronically Signed By: MARCIA GUY
[2024-09-26 21:11] LABS: MANUAL DIFF FLAG NO
[2024-09-26 21:12] LABS: Basophils Percent Auto 0.2 % (0-2); Eosinophils Absolute Auto 0.1 X10*3/uL (0.0-0.4); Eosinophils Percent Auto 0.7 % (0-4); Hematocrit 40.1 % (37.0-47.0); Imm Gran Abs Auto 0.03 X10*3/uL (0.00-0.03); Imm Gran Pct Auto 0.4 % (0.0-0.4); Lymphocytes Percent Auto 23.7 % (20-40); Mean Corpuscular HGB Conc 32.4 g/dl (31.0-35.0); Mean Corpuscular Hemoglobin 28.4 pg (27.0-33.0); Mean Corpuscular Volume 87.6 fL (80.0-98.0); Mean Platelet Volume 10.2 fL (9.4-12.3); Monocytes Absolute Auto 0.8 X10*3/uL (0.1-1.2); Monocytes Percent Auto 9.2 % (2-11); Neutrophils Absolute Auto 5.5 x10*3/uL (2.0-8.3); Neutrophils Percent Auto 65.8 % (45-73); Platelet Count 259 X10*3/uL (160-400); Red Blood Count 4.58 X10*6/uL (4.20-5.50); Red Cell Distribution Width 16.6 % (11.0-16.0); White Blood Count 8.4 X10*3/uL (4.8-10.8)
[2024-09-26 21:16] LABS: IDNOW Serial# 6674DD1D; Strep A Nucleic Acid Positive (Negative)
[2024-09-26 21:26] LABS: Alanine Aminotransferase 24 U/L (0-31); Albumin Level 4.1 g/dL (3.5-5.0); Alkaline Phosphatase 101 U/L (39-117); Anion Gap 15 (12-20); Aspartate Amino Transferase 24 U/L (5-31); Bilirubin Direct < 0.2 mg/dL (0.0-0.5); Bilirubin Total 0.2 mg/dL (0.0-1.0); Blood Urea Nitrogen 9 mg/dL (9-16); C Reactive Protein 0.56 mg/dL (< or = 0.50); Calcium 8.9 mg/dL (8.4-10.2); Carbon Dioxide 21 mmol/L (22-29); Chloride 109 mmol/L (96-108); Creatinine Clr Calc Pharmacy 148.5; Estimated Glomerular Filt Rate > 60; Glucose Random 112 mg/dL (60-115); Potassium 3.8 mmol/L (3.3-5.1); Sodium 141 mmol/L (135-145); Total Protein 7.6 g/dL (6.5-8.0)
[2024-09-26 21:49] LABS: Influenza A PCR NEGATIVE (Negative); Influenza B PCR NEGATIVE (Negative); Resp Syncy Virus RNA Qual PCR NEGATIVE (Negative); SARS COV2 PCR INHOUSE NEGATIVE (Negative)
[2024-09-26 21:50] LABS: Erythrocyte Sedimentation Rate 7 MM/HR (0-20)
[2024-09-27 01:44] VITALS: BP 154/93; PULSE 71; RESP 16; TEMP 37.1; O2SAT 97
[2024-09-27] MEDS: Amoxicillin/Potassium Clav 875 MG TABLET PO (02:55)
--- NOTE | 2024-09-27 02:56 | PC.NURSE ---
medicated per mar.
--- NOTE | 2024-09-27 03:26 | PC.NURSE ---
Lab collected and sent.
--- NOTE | 2024-09-27 03:26 | PC.NURSE ---
Took over care from SOUMYA Brody, pt resting in bed and awaiting deposition.
[2024-09-27 03:34] LABS: Monotest Negative (Negative)
[2024-09-27 03:58] VITALS: BP 159/98; PULSE 78; RESP 16; TEMP 36.9; O2SAT 97
[2024-09-27 04:02] VITALS: BP 159/98; PULSE 78; RESP 16; TEMP 36.9; O2SAT 97
== END 2024-09-27 04:03 | disposition home or self-care (01) ==
PROVIDERS: Physician Assistant; Emergency Provider Internal Medicine; PCP Internal Medicine
DX: J02.0 Streptococcal pharyngitis (principal); R00.0 Tachycardia, unspecified; Z03.818 Encounter for observation for suspected exposure to other biological agents ruled out; Z79.899 Other long term (current) drug therapy
CPT/HCPCS: 0241U; 36415; 80048; 80076; 85025; 85652; 86140; 86308; 87040; 87651; 93005; 99284

== ENCOUNTER → 2024-09-26 20:39 | Outpatient (BNV) | payer OTHER, SELFPAY | PROVIDERS: Emergency Provider Internal Medicine; PCP Internal Medicine; Visit Provider Internal Medicine | DX: R00.0 Tachycardia, unspecified (principal) | CPT/HCPCS: 93010 ==